=== PATIENT | female | born 1945 | race Caucasian/White ===

== ENCOUNTER 2019-03-13 11:25 | Emergency (ER) | payer MEDICARE, BC, OTHER ==
--- OUTSIDE RECORDS SUMMARY | 2019-03-13 11:53 | XMS REPORT | Continuity of Care Document ---
:1945 External Reference #:[id number] Author Name Sharon Tijerina MD Address [address] [place] [address] Care Team Providers Name Role Phone Lyubov Oliveros NP Care Team Information Ensemble Member Unavailable Lyubov Oliveros NP Primary Care Physician Unavailable Payers Date Identification Numbers Payment Provider Subscriber Policy Number: [id number] Medicare Maddie Ha PayID: [id number] [address] [place] [address] Effective: 2014 Policy Number: [id number] [facility] Aries Ha Group Number: [id number] [address] [address] Group Name: [place] [address] PayID: [id number] Policy Number: [id number] [facility] Aries Mariana Leland PayID: [id number] [address] [place] [address] Effective: 2012 Policy Number: [id number] Medicare Maddie Ha Expires: 2018 Group Name: Medicare [address] PayID: [id number] [place] [address] Advance Directives Type Date Description Status Comment Other Directive 07/19/2008 Health Care Proxy Current and Verified Problems Active Problems Provider Date Localized, 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 Osteoporosis Carina Ramirez, RPAC Onset: 01/20/2015 Note: Reclast since 2014 Hyperlipidemia Carina Ramirez, RPAC Onset: 01/20/2015 [facility] 01/[facility]2015 Note: following tx for hyperthyroidism @ ~47 Anxiety Carina Ramirez [facility] Onset: 01/20/2015 Expressive language disorder Carina Ramirez [facility] Onset: 01/20/2015 Note: stuttering Deformity of toe Carina Ramirez [facility] Onset: 01/20/2015 Note: multiple toe involvement Degenerative joint disease involving Carina Ramirez [facility] Onset: 2014 multiple joints Anxiety state Carina Ramirez [facility] Onset: 09/15/2011 Mixed hyperlipidemia Onset: 09/02/2016 Constipation - functional Harshal Moreno MD Onset: 12/02/2016 [facility]set: 11/29/2017 Amnesia Carina Ramirez [facility] Onset: 11/29/2017 Note: silent 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 Retired Hand Dominance Right-handed Tobacco Use Start: Unknown Never Smoked Cigarettes ETOH Use Drinks 1 Alcoholic Beverage Per Day Tobacco Use Start: Unknown End: Patient is a former smoker Recreational Drug Use Denies Drug Use Smoking Status Reviewed: 03/02/19 Patient is a former smoker Allergies, Adverse Reactions, Alerts Active Allergies Reaction Severity Comments Date Fosamax cold/congestion 10/17/2014 Inactive Allergies NKDA 11/05/2008 Medications Active Medications SIG Qnty Indications Ordering Provider Date Desloratadine 1 tab by mouth 30tabs J30.9 Leon Mcgee, 09/13/2018 5mg every day for M.D. Tablets cough and congestion( Per Pt prn) Eliquis 1 tab by mouth 60tabs Clune, 07/29/2018 5mg Tablets twice a day MIGNON Mcarthur Prolia SQ injection q 6 Ann 06/27/2018 60mg/ml months, starting Endocrinology Solution 07/2018 [facility] Linzess 1 by mouth every 90caps K59.09 Harshal Moreno MD 09/02/2016 290mcg day prn Capsules Calcium 500 +D one tab by mouth Socorro Darby, 01/18/2015 once daily M.D. [id number] Tablets Zafirlukast take one tablet 60tabs Clune, 04/02/2014 20mg by mouth twice a MIGNON Mcarthur Tablets day Multi 1 po qd 100tabs Socorro Darby, 08/31/2012 Vitamin/Minerals MD Full Spectrum Tablets Celecoxib take one capsule 90caps Kang Moss MD 200mg by mouth every Capsules day with food as needed pain Levothyroxine Sodium Take 1 Tablet By Unknown Mouth On M, 75mcg Tablets T,W,TH,F Levothyroxine Sodium Take One Tablet Unknown By Mouth Every 50mcg Tablets Wednesday & Wednesday Paroxetine HCL take one tablet 90tabs Maria Luz Oliver, 20mg by mouth every MS, RECREATION CLERK-C, CNM Tablets day History Medications Hydrocodone-Acetaminophen 1 by mouth 30tabs Sharon Tijerina, 05/18/2018 - 5-325mg every 4 hours 06/01/2018 Tablets as needed for pain Metaxalone 1-2 tabs by 30tabs Sharon Tijerina, 05/10/2018 - 400mg Tablets mouth three MD 06/01/2018 times a day as needed for muscle spasms Aspirin Childrens 1 tab by mouth Perla Coley, 12/26/2017 - 81mg Chewtabs every day 07/29/2018 Azithromycin 2 tabs by 11tabs J06. Leon Mcgee, 06/22/2017 - 250mg Tablets mouth today 9 M.D. 09/03/2017 then one tab by mouth daily Golytely drink half the 4000ml Harshal Moreno MD 09/10/2016 - 236gm Solution Rec evening before 10/15/2016 and half the morning of the procedure (1 cup every 10') Ranitidine 150 Maximum 1 by mouth 30tabs R07. Harshal Moreno MD 09/02/2016 - Strength every day 9 Unknown 150mg Tablets Omeprazole take one 30caps Z79. Vandanapo[place]andaca, 08/19/2016 - 20mg Capsules DR capsule by 1 M.D. Unknown mouth every morning Augmentin take one 14tabs J01. Wanda Vaughanca, 08/19/2016 - 875-125mg Tablets tablet by 90 M.D. Unknown mouth every 12 hours Guaifenesin ER take two 30tabs J01. Pompo Jane, 08/19/2016 - 600mg Tablets ER 12HR tablets by 90 M.D. Unknown mouth every 12 hours as needed for congestion Tessalon take one 30caps J01. Pompo Jane, 08/19/2016 - 200mg Capsules tablet by 90 M.D. Unknown mouth every 8 hours as needed for cough Senna-Docusate Sodium take one 30tabs K59. Vandanapo Jane, 08/19/2016 - 8.6-50mg Tablets tablet by 00 M.D. Unknown mouth every 12 hours stop taking medication if you develop diarrhea Flonase Allergy Relief spray 2 sprays 1units J30. Alexus Jane, 2015 - 50mcg/Act per nostril 89 M.D. 10/14/2017 Suspension once a day as needed for allergies Cefprozil 1 tab by mouth 20tabs J01. Jama Anthony, 04/02/2016 - 500mg Tablets twice a day 90 DO 07/31/2016 Xyzal 5mg 1 tab by mouth 30tabs J30. Jama Anthony, 04/02/2016 - Tablets every day as 9 DO 08/19/2016 needed allergies Synthroid 1 tab by mouth 30tabs Jama Anthony, 10/07/2015 - 88mcg Tablets on Wednesday and DO 10/17/2015Wednesday Cephalexin 1 tab (or cap) 30tabs J01. Jama Anthony, 09/24/2015 - 500mg Tablets by mouth three 90 DO 10/07/2015 times a day Reclast treatment Unknown 05/28/2015 - 5mg/100ML Solution initiated 10/14/201705/2015 1 q year Reclast once a year Ann 04/27/2015 - 5mg/100ML Solution infusion Endocrinology 07/18/2018 [facility] Desloratadine 1 tab by mouth 30tabs 477. Darby, 02/20/2015 - 5mg Tablets every day as 0 Fabian Quintanilla 10/24/2015 needed congestion Synthroid 1 by mouth 5 Jama Anthony, 02/13/2015 - 75mcg Tablets days per week DO 10/17/2015 [t,w,th,s,s] Lipitor tab po qd 30tabs Misael Mcadams 02/26/2010 - 20mg Tablets Fabian Love, [facility] 02/26/2010 Lipitor 1 po qd 90tabs Misael Mcadams 02/26/2010 - 40mg Tablets Fabian Love, [facility] 10/12/2013 Valtrex 1 tab po bid Misael Mcadams 11/13/2008 - 500mg Tablets Fabian Love, [facility] 10/12/2013 Synthroid 1 tab po q day 30tabs Misael Mcadams 11/13/2008 - 88mcg Tablets Fabian Love, [facility] 02/20/2015 Celebrex 1 cap by mouth 90caps Jama Anthony, 11/13/2008 - 200mg Capsules every day with DO 08/19/2016 food Paroxetine HCL ER 1 tab po qd Misael Mcadams 11/13/2008 - 25mg Tablets ER 24HR Fabian Love, [facility] 10/17/2014 Forteo injection Unknown - 600mcg/2.4ML Solution every day 04/19/2015 Synthroid Unknown - 75mcg Tablets 10/17/2014 Montelukast Sodium Unknown - 10mg Tablets 10/17/2014 Levothyroxine Sodium 1 by mouth Unknown - 88mcg Tablets every day 02/20/2015 Levothyroxine Sodium 1 by mouth 45tabs Unknown - 75mcg Tablets every other 02/20/2015 day/ alternates with 88mcg Synthroid 1 by mouth on Unknown - 50mcg Tablets even days Unknown Miralax 1 tablespoon Unknown - [id number] Powder mixed in Am Unknown liquid q day Levothyroxine Sodium 1 tab by mouth E03. Ann - 75mcg Tablets M-F 9 Endocrinology 10/14/2017 Associates Levothyroxine Sodium 1 by mouth on Ann - 50mcg Tablets S + S Endocrinology 10/14/2017 [facility] Fiber Select Gummies fiber advance Jama Anthony, - Chewtabs gummies 2 by DO Unknown mouth daily Medications Administered in Office Medication SIG Qnty Indications Ordering Provider Date Methylprednisolone acetate Lesa Plunkett, 10/17/2014 (Depomedrol) 80mg injection RPAC Injection Immunizations CPT Code Status Date Vaccine Reaction Lot # 49871 Given 07/02/2017 Influenza Virus Vaccine received at Quadrivalent Iiv4 [facility]/[place] [address] Given 10/24/2015 Pneumococcal Conjugate [id number] Vaccine 13 Valent For Intramuscular Use 04899 Given 08/01/2013 Pneumovax Injection 69699 Given 08/01/2013 flu vaccination 45629 Given 05/16/2013 Tdap injection 48463 Given 07/06/2012 flu vaccination 70212 Given 06/29/2011 flu vaccination 23411 Given 09/17/2010 flu vaccination 37472 Given 07/26/2009 flu vaccination 03641 Given 08/28/2008 flu vaccination 66520 Given 08/15/2007 flu vaccination 32960 Given 08/11/2006 flu vaccination 89098 Given 09/10/2005 flu vaccination 14400 Given 08/06/2005 Pneumovax Injection 11501 Given 08/07/2003 flu vaccination Vital Signs Date Vital Result Comment 03/02/2019 10:24am BP Systolic Sitting Left Arm 122 mmHg BP Diastolic Sitting Left Arm 79 mmHg Body Temperature 98.4 F Heart Rate 67 /min Weight 102.00 lb O2 % BldC Oximetry 95 % 02/28/2019 2:13pm BP Systolic 118 mmHg BP Diastolic 60 mmHg Heart Rate 62 /min Respiratory Rate 15 /min Height 56 inches 4'8" Weight 104.00 lb BMI (Body Mass Index) 23.3 kg/m2 BSA (Body Surface Area) 1.34 m2 [place] body weight in kilograms 45 kg O2 % BldC Oximetry 98 % 12/01/2018 8:56am BP Systolic Sitting Left Arm 118 mmHg BP Diastolic Sitting Left Arm 72 mmHg Heart Rate 72 /min Respiratory Rate 18 /min Height 56 inches 4'8" Weight 103.00 lb BMI (Body Mass Index) 23.1 kg/m2 BSA (Body Surface Area) 1.34 m2 [place] body weight in kilograms 45 kg Pain Level 5 upper back/shoulders 11/03/2018 1:17pm BP Systolic Sitting Left Arm 110 mmHg BP Diastolic Sitting Left Arm 62 mmHg Heart Rate 62 /min Respiratory Rate 16 /min Height 56 inches 4'8" Weight 103.50 lb BMI (Body Mass Index) 23.2 kg/m2 BSA (Body Surface Area) 1.34 m2 [place] body weight in kilograms 45 kg O2 % BldC Oximetry 98 % 09/13/2018 10:30am BP Systolic Sitting Right Arm 120 mmHg BP Diastolic Sitting Right Arm 70 mmHg Body Temperature 98.5 F Heart Rate 60 /min reg Respiratory Rate 24 /min Height 56 inches 4'8" Weight 102.00 lb BMI (Body Mass Index) 22.9 kg/m2 BSA (Body Surface Area) 1.33 m2 [place] body weight in kilograms 45 kg O2 % BldC Oximetry 98 % ra 09/01/2018 10:19am BP Systolic 120 mmHg BP Diastolic 72 mmHg Body Temperature 98.1 F Heart Rate 62 /min Height 56 inches 4'8" Weight 103.00 lb BMI (Body Mass Index) 23.1 kg/m2 BSA (Body Surface Area) 1.34 m2 [place] body weight in kilograms 45 kg O2 % BldC Oximetry 94 % Pain Level 0 09/01/2018 10:16am Height 56 inches 4'8" [place] body weight in kilograms 45 kg 07/18/2018 1:12pm BP Systolic 127 mmHg BP Diastolic 81 mmHg Body Temperature 98.4 F Heart Rate 66 /min Respiratory Rate 18 /min Height 56 inches 4'8" Weight 103.38 lb BMI (Body Mass Index) 23.2 kg/m2 BSA (Body Surface Area) 1.34 m2 [place] body weight in kilograms 45 kg O2 % BldC Oximetry 99 % 06/01/2018 10:53am BP Systolic 141 mmHg BP Diastolic 83 mmHg Body Temperature 97.9 F Heart Rate 56 /min Respiratory Rate 15 /min Height 56 inches 4'8" Weight 101.00 lb BMI (Body Mass Index) 22.6 kg/m2 BSA (Body Surface Area) 1.33 m2 [place] body weight in kilograms 45 kg O2 % BldC Oximetry 97 % room air Pain Level 3 05/18/2018 1:27pm BP Systolic 120 mmHg BP Diastolic 62 mmHg Body Temperature 97.1 F Heart Rate 62 /min Height 55.75 inches 4'7.75" measured Weight 103.00 lb BMI (Body Mass Index) 23.3 kg/m2 BSA (Body Surface Area) 1.33 m2 [place] body weight in kilograms 45 kg O2 % BldC Oximetry 97 % Pain Level 5 05/10/2018 10:03am BP Systolic Sitting Left Arm 131 mmHg BP Diastolic Sitting Left Arm 76 mmHg Body Temperature 97.4 F Heart Rate 65 /min Respiratory Rate 17 /min Height 55.75 inches 4'7.75" measured Weight 103.00 lb BMI (Body Mass Index) 23.3 kg/m2 BSA (Body Surface Area) 1.33 m2 [place] body weight in kilograms 45 kg O2 % BldC Oximetry 99 % 11/29/2017 8:50am BP Systolic Sitting Right Arm 130 mmHg BP Diastolic Sitting Right Arm 74 mmHg Heart Rate 62 /min Respiratory Rate 12 /min Height 55.75 inches measured Weight 101.00 lb BMI (Body Mass Index) 22.8 kg/m2 BSA (Body Surface Area) 1.32 m2 [place] body weight in kilograms 45 kg 10/14/2017 1:09pm BP Systolic Sitting Left Arm 113 mmHg BP Diastolic Sitting Left Arm 78 mmHg Heart Rate 56 /min Height 56 inches 4'8" Weight 103.00 lb BMI (Body Mass Index) 23.1 kg/m2 BSA (Body Surface Area) 1.34 m2 [place] body weight in kilograms 45 kg 06/22/2017 12:44pm BP Systolic 127 mmHg BP Diastolic 72 mmHg Body Temperature 97.7 F Heart Rate 67 /min Respiratory Rate 14 /min Height 56 inches 4'8" Weight 101.00 lb BMI (Body Mass Index) 22.6 kg/m2 BSA (Body Surface Area) 1.33 m2 [place] body weight in kilograms 45 kg O2 % BldC Oximetry 96 % 04/14/2017 9:36am BP Systolic Sitting Right Arm 104 mmHg BP Diastolic Sitting Right Arm 62 mmHg Body Temperature 99.0 F Heart Rate 68 /min Respiratory Rate 18 /min Height 56 inches 4'8" Weight 101.00 lb BMI (Body Mass Index) 22.6 kg/m2 BSA (Body Surface Area) 1.33 m2 [place] body weight in kilograms 45 kg O2 % BldC Oximetry 98 % ra 12/02/2016 10:55am BP Systolic Sitting Left Arm 120 mmHg BP Diastolic Sitting Left Arm 62 mmHg Heart Rate 69 /min Respiratory Rate 16 /min Height 56 inches 4'8" Weight 103.00 lb BMI (Body Mass Index) 23.1 kg/m2 BSA (Body Surface Area) 1.34 m2 11/03/2016 1:07pm BP Systolic Sitting Right Arm 138 mmHg BP Diastolic Sitting Right Arm 72 mmHg Height 56 inches 4'8" Weight 102.38 lb BMI (Body Mass Index) 22.9 kg/m2 BSA (Body Surface Area) 1.34 m2 10/15/2016 1:17pm BP Systolic Sitting Left Arm 119 mmHg BP Diastolic Sitting Left Arm 76 mmHg Heart Rate 64 /min Height 56 inches 4'8" Weight 102.00 lb BMI (Body Mass Index) 22.9 kg/m2 BSA (Body Surface Area) 1.33 m2 [place] body weight in kilograms 45 kg 09/10/2016 9:15am BP Systolic Sitting Left Arm 132 mmHg BP Diastolic Sitting Left Arm 82 mmHg Heart Rate 54 /min Respiratory Rate 16 /min Height 56.0 inches 4'8" Weight 102.00 lb BMI (Body Mass Index) 22.9 kg/m2 BSA (Body Surface Area) 1.33 m2 09/02/2016 10:12am BP Systolic Sitting Left Arm 130 mmHg BP Diastolic Sitting Left Arm 80 mmHg Heart Rate 70 /min Respiratory Rate 16 /min Height 56.0 inches 4'8" Weight 102.00 lb BMI (Body Mass Index) 22.9 kg/m2 BSA (Body Surface Area) 1.33 m2 08/19/2016 1:37pm BP Systolic 110 mmHg BP Diastolic 66 mmHg Body Temperature 98.0 F Heart Rate 59 /min Respiratory Rate 20 /min Height 56.0 inches 4'8" Weight 102.00 lb BMI (Body Mass Index) 22.9 kg/m2 BSA (Body Surface Area) 1.33 m2 O2 % BldC Oximetry 97 % 04/02/2016 2:44pm BP Systolic 128 mmHg BP Diastolic 72 mmHg Body Temperature 97.4 F Heart Rate 58 /min Respiratory Rate 12 /min Height 56.0 inches 4'8" Weight 99.38 lb BMI (Body Mass Index) 22.3 kg/m2 BSA (Body Surface Area) 1.32 m2 O2 % BldC Oximetry 95 % 01/16/2016 12:49pm BP Systolic 120 mmHg BP Diastolic 78 mmHg Body Temperature 98.9 F Heart Rate 64 /min Respiratory Rate 14 /min Height 56.0 inches 4'8" Weight 102.00 lb BMI (Body Mass Index) 22.9 kg/m2 BSA (Body Surface Area) 1.33 m2 O2 % BldC Oximetry 98 % 10/24/2015 8:56am BP Systolic Sitting Left Arm 120 mmHg BP Diastolic Sitting Left Arm 66 mmHg Heart Rate 58 /min Height 56.0 inches 4'8" Weight 102.00 lb BMI (Body Mass Index) 22.9 kg/m2 BSA (Body Surface Area) 1.33 m2 O2 % BldC Oximetry 97 % 10/17/2015 9:08am BP Systolic 110 mmHg BP Diastolic 60 mmHg Height 56.0 inches 4'8" Weight 103.00 lb BMI (Body Mass Index) 23.1 kg/m2 BSA (Body Surface Area) 1.34 m2 10/14/2015 9:51am BP Systolic Sitting Left Arm 106 mmHg BP Diastolic Sitting Left Arm 66 mmHg Height 59.5 inches 4'11.50" Weight 102.19 lb BMI (Body Mass Index) 20.3 kg/m2 BSA (Body Surface Area) 1.39 m2 09/24/2015 9:38am BP Systolic Sitting Left Arm 112 mmHg BP Diastolic Sitting Left Arm 72 mmHg Body Temperature 97.6 F Heart Rate 112 /min Height 59.5 inches 4'11.50" Weight 100.50 lb BMI (Body Mass Index) 20.0 kg/m2 BSA (Body Surface Area) 1.38 m2 O2 % BldC Oximetry 94 % 02/20/2015 10:02am Body Temperature 98.3 F 02/20/2015 9:58am BP Systolic Sitting Left Arm 108 mmHg BP Diastolic Sitting Left Arm 66 mmHg Height 54 inches 4'6" Weight 100.00 lb BMI (Body Mass Index) 24.1 kg/m2 BSA (Body Surface Area) 1.29 m2 10/22/2014 10:11am BP Systolic 102 mmHg Height 54 inches 4'6" Weight 103.00 lb 05/18/2014 10:27am BP Systolic 114 mmHg BP Diastolic 70 mmHg Body Temperature 97.3 F Weight 100.00 lb 04/02/2014 10:16am BP Systolic 90 mmHg BP Diastolic 62 mmHg Body Temperature 98.9 F Heart Rate 64 /min Height 54 inches 4'6" Weight 99.00 lb 10/19/2013 1:13pm BP Systolic 110 mmHg BP Diastolic 70 mmHg Height 54 inches 4'6" Weight 102.00 lb 10/10/2013 1:28pm BP Systolic Sitting Right Arm 130 mmHg BP Diastolic Sitting Right Arm 70 mmHg Height 54 inches 4'6" Weight 101.00 lb BMI (Body Mass Index) 24.3 kg/m2 BSA (Body Surface Area) 1.29 m2 06/12/2013 1:44pm BP Systolic 110 mmHg BP Diastolic 72 mmHg Body Temperature 97.7 F Height 54 inches 4'6" Weight 102.00 lb 06/05/2013 10:46am BP Systolic 122 mmHg BP Diastolic 64 mmHg Body Temperature 97.7 F Height 54 inches 4'6" Weight 103.00 lb 10/25/2012 11:06am Heart Rate 64 /min Height 54 inches 4'6" Weight 104.00 lb 130/88 10/06/2012 10:48am BP Systolic 118 mmHg BP Diastolic 70 mmHg Height 54 inches 4'6" Weight 104.00 lb 09/06/2012 1:19pm Height 55.5 inches 4'7.50" Weight 102.00 lb 08/31/2012 1:14pm BP Systolic 106 mmHg BP Diastolic 60 mmHg Weight 103.00 lb 08/16/2012 11:03am Height 54 inches 4'6" Weight 101.00 lb 02/10/2012 11:33am Height 56 inches 4'8" Weight 106.00 lb 02/10/2012 11:35am Height 54 inches 4'6" Weight 106.00 lb 01/27/2012 10:06am BP Systolic 118 mmHg BP Diastolic 68 mmHg Body Temperature 98.0 F Weight 104.00 lb 12/24/2011 11:40am BP Systolic 116 mmHg BP Diastolic 70 mmHg Body Temperature 98.6 F Height 56 inches 4'8" Weight 104.00 lb 12/14/2011 11:10am BP Systolic 116 mmHg BP Diastolic 62 mmHg Body Temperature 98.1 F Height 56 inches 4'8" Weight 107.00 lb 12/10/2011 1:30pm BP Systolic 120 mmHg BP Diastolic 70 mmHg Body Temperature 98.8 F Height 56 inches 4'8" Weight 112.00 lb 10/05/2011 1:27pm BP Systolic 142 mmHg BP Diastolic 78 mmHg Heart Rate 70 /min Respiratory Rate 16 /min Height 56 inches 4'8" Weight 112.00 lb 08/12/2011 11:19am Height 56 inches 4'8" Weight 113.00 lb 07/06/2011 3:24pm BP Systolic 110 mmHg BP Diastolic 70 mmHg Body Temperature 98.6 F Heart Rate 68 /min Respiratory Rate 16 /min Height 56 inches 4'8" Weight 113.00 lb 11/17/2007 8:51am Height 58 inches 4'10" Weight 142.00 lb 04/07/2007 9:56am Height 58 inches 4'10" Weight 141.00 lb 10/14/2006 10:05am Height 56 inches 4'8" Weight 140.00 lb 02/25/2006 9:43am Height 56 inches 4'8" Weight 143.00 lb 09/10/2005 10:12am Height 56 inches 4'8" Weight 141.00 lb 03/11/2005 11:17am Height 56 inches 4'8" Weight 141.00 lb Results Test Date Facility Test Result H/L Range Note LDL Cholesterol 12/01/2018 [facility] Cholesterol 210 mg/dL High <200 1, 2 Profile [address] [place], [place] [id number] [phone] Triglycerides 95 mg/dL <150 3 HDL Cholesterol 82 mg/dL >40 4 LDL-Cholesterol 109 mg/dL < 100 5 Comprehensive Metabolic 12/01/2018 [facility] Glucose 91 mg/dL N 74-106 Panel [address] [place], [place] [id number] [phone] BUN 18 mg/dL N 7-18 Creatinine 0.9 mg/dL N 0.6-1.3 Glom Filtration Rate, Estimate >60 mL/min >60 If >60 mL/min >60 6 BUN/Creat 20.0 ratio Sodium 139 mmol/L N 136-145 Potassium 4.2 mmol/L N 3.5-5.1 Chloride 106 mmol/L N 98-107 Carbon Dioxide 28 mmol/L N 21-32 Anion Gap 5 mEq/L Low 8-16 Calcium 8.9 mg/dL N 8.5-10.1 Total Protein 7.4 g/dL N 6.4-8.2 Albumin 3.9 g/dL N 3.4-5.0 Globulin 3.5 g/dL N 1.9-4.3 Alb/Glob 1.1 ratio Bilirubin,Total 0.4 mg/dL N 0.2-1.0 Sgot/Ast 19 U/L N 15-37 SGPT/Alt 21 U/L N 12-78 Alkaline Phosphatase 49 U/L N 45-117 Urine Dipstick 12/01/2018 [facility] Ua Leuko - Negative Ua Nitrite - Negative Ua Urobilinogen .2 0.2 - 1.0 E.U./dL Ua Protein - Negative Ua PH 7.5 6.5-7.5 Ua Blood - Negative Ua Specific [place] 1.005 Low 1.010-1.030 Ua Ketones - Negative Ua Bilirubin - Negative Ua Glucose - Negative LDL Cholesterol 01/04/2018 [facility] Cholesterol 197 mg/dL <200 7, 8 Profile [address] [place], [place] [id number] [phone] Triglycerides 95 mg/dL <150 9 HDL Cholesterol 84 mg/dL >40 10 LDL-Cholesterol 94 mg/dL < 100 11 Laboratory test 12/20/2017 [facility] Thyroid Stim 0.52 uIU/mL N 0.30-4.20 [address] Hormone [place], [place] [id number] [phone] Treponema Antibody [place] Negative Negative 13 Vitamin B1 (Thiamine),WB 156.3 nmol/L 66.5-200.0 14 CBS W/Automated 12/01/2017 [facility] White Blood 5.5 K/uL N 3.1-10.7 [address] Count [place], [place] [id number] [phone] Red Blood Count 4.31 M/uL N 3.90-5.40 Hemoglobin 13.8 gm/dL N 11.6-15.8 Hematocrit 41.1 % N 36.0-46.1 Mean Cell Volume 95.4 fl N 80.9-99.0 Mean Corpuscular HGB 32.0 pg N 25.9-32.7 Mean Corpuscular HGB Conc 33.6 g/dL N 30.8-34.3 Platelet Count 205 K/uL N 155-360 Red Cell Distri Width SD 46.9 fl N 3-47 Red Cell Distri Width %CV 13.8 % N 11.7-14.4 Mean Platelet Volume 12.1 fL N 8.9-12.4 Neut% 58.2 % N 40.4-72.8 Lymph % 31.0 % N 20.0-42.0 [place] % 7.9 % N 4.3-13.2 Eo% 2.2 % N 0.0-6.6 Bas% 0.7 % N 0.0-1.1 Neut# 3.18 K/uL N 1.8-7.0 Lymph # 1.69 K/uL N 1.0-4.0 [place] # 0.43 K/uL N 0.3-0.9 Eos # 0.12 K/uL N 0.0-0.5 Baso # 0.04 K/uL N 0.0-0.1 Laboratory test 12/01/2017 [facility] Vitamin 45.7 30.0-100.0 [address] D,25-Hydroxy ng/[place] [address] [phone] Vitamin B12 And 12/01/2017 [facility] Vitamin B12 948 pg/mL N 193-986 Folate [address] [place] [address] [phone] Folic Acid > 20.0 ng/mL High 3.1-17.5 Comprehensive Metabolic 12/01/2017 [facility] Glucose 90 mg/dL N 74-106 Panel [address] [place] [address] [phone] BUN 23 mg/dL High 7-18 Creatinine 0.8 mg/dL N 0.6-1.3 Glom Filtration Rate, Estimate >60 mL/min >60 If >60 mL/min >60 17 BUN/Creat 28.7 ratio Sodium 141 mmol/L N 136-145 Potassium 4.5 mmol/L N 3.5-5.1 Chloride 106 mmol/L N 98-107 Carbon Dioxide 29 mmol/L N 21-32 Anion Gap 6 mEq/L Low 8-16 Calcium 9.1 mg/dL N 8.5-10.1 Total Protein 7.1 g/dL N 6.4-8.2 Albumin 4.0 g/dL N 3.4-5.0 Globulin 3.1 g/dL N 1.9-4.3 Alb/Glob 1.3 ratio Bilirubin,Total 0.5 mg/dL N 0.2-1.0 Sgot/Ast 19 U/L N 15-37 SGPT/Alt 17 U/L N 12-78 Alkaline Phosphatase 51 U/L N 45-117 Laboratory test 08/19/2016 [facility] Thyroid Stim 3.87 N 0.30-4.20 [address] Hormone uIU/[place] [address] [phone] Laboratory test 11/26/2015 [facility] TSH Reflex 5.80 High 0.36-3.74 [address] FT4 and/or uIU/[place] [address] FT3 [phone] Free T3 2.05 pg/mL Low 2.18-3.98 Free T4 1.00 ng/dL 0.76-1.46 Comprehensive Metabolic 10/24/2015 [facility] Glucose 92 mg/dL 74-[address] [place] [address] [phone] BUN 21 mg/dL High 7-18 Creatinine 0.8 mg/dL 0.6-1.3 Glom Filtration Rate, Estimate >60 mL/min >60 If >60 mL/min >60 20 BUN/Creat 26.2 ratio Sodium 141 mmol/L 136-145 Potassium 4.1 mmol/L 3.5-5.1 Chloride 105 mmol/L 98-107 Carbon Dioxide 27 mmol/L 21-32 Anion Gap 9 mEq/L 8-16 Calcium 8.5 mg/dL 8.5-10.1 Total Protein 7.4 g/dL 6.4-8.2 Albumin 4.0 g/dL 3.4-5.0 Globulin 3.4 g/dL 1.9-4.3 Alb/Glob 1.2 ratio Bilirubin,Total 0.5 mg/dL 0.2-1.0 Sgot/Ast 25 U/L 15-37 SGPT/Alt 25 U/L 12-78 Alkaline Phosphatase 62 U/L 45-117 LDL Cholesterol 10/24/2015 [facility] Cholesterol 204 mg/dL High <200 [address] [place] [address] [phone] Triglycerides 142 mg/dL <150 22 HDL Cholesterol 75 mg/dL >40 23 LDL-Cholesterol 101 mg/dL < 100 24 Laboratory test 10/24/2015 [facility] Vitamin 43.1 30.0-100.0 [address] D,25-Hydroxy ng/[place] [address] [phone] Laboratory test 09/24/2015 [facility] Thyroid Stim 0.46 0.36-3.[address] Hormone uIU/[place] [address] [phone] Free T4 1.37 ng/dL 0.76-1.46 CBS W/Automated Diff 09/24/2015 [facility] White Blood 7.2 K/uL 3.1-10.[address] [place] [address] [phone] Red Blood Count 4.42 M/uL 3.90-5.40 Hemoglobin 14.1 gm/dL 11.6-15.8 Hematocrit 42.9 % 36.0-46.1 Mean Cell Volume 97.1 fl 80.9-99.0 Mean Corpuscular HGB 31.9 pg 25.9-32.7 Mean Corpuscular HGB Conc 32.9 g/dL 30.8-34.3 Platelet Count 214 K/uL 155-360 Red Cell Distri Width SD 47.8 fl High 3-47 Red Cell Distri Width %CV 13.9 % 11.7-14.4 Mean Platelet Volume 11.1 fL 8.9-12.4 Neut% 71.9 % 40.4-72.8 Lymph % 17.8 % 17.0-46.1 [place] % 8.4 % 4.3-13.2 Eo% 1.3 % 0.0-6.6 Bas% 0.6 % 0.0-1.1 Neut# 5.15 K/uL 1.0-7.0 Lymph # 1.27 K/uL Low 1.8-7.0 [place] # 0.60 K/uL 0.3-0.9 Eos # 0.09 K/uL 0.0-0.5 Baso # 0.04 K/uL 0.0-0.1 Hepatitis C 02/20/2015 [facility] Hepatitis C Nonreactive Antibody [address] [place] [address] [phone] Signal/Cutoff ratio < 0.02 <0.80 26 Laboratory test 10/22/2014 N2N/CCD Import Cytology Pap See Note 27 finding Laboratory test 12/26/2013 N2N/CCD Import Thyroid Stim 3.38 0.49-4.67 finding Hormone uIU/mL Laboratory test 06/21/2013 N2N/CCD Import Creatine Kinase 63 U/L 0-200 finding Lipid Profile 06/21/2013 N2N/CCD Import Cholesterol 220 mg/dL High Less than (Trig/Chol/HDL) 200 Cholesterol/HDL Ratio 2.5 Average 1-4.44 HDL Cholesterol 87 mg/dL High 40-60 28 LDL Cholesterol 111.4 High Less Than 100 29 Triglycerides 108 mg/dL 40-200 Liver Function Panel 06/21/2013 N2N/CCD Import Albumin 4.1 g/dL 3.2-5.2 Albumin/Globulin Ratio 1.7 1-3 Alkaline Phosphatase 73 U/L 30-110 Alt 13 U/L Low 14-54 Ast 25 U/L 12-42 Direct Bilirubin 0.1 mg/dL 0.1-0.5 Globulin 2.4 g/dL 2-4 Indirect Bilirubin 0.6 mg/dL 0.3-1.0 Total Bilirubin 0.7 mg/dL 0.4-1.5 Total Protein 6.5 g/dL 6.2-8.1 Lipid Profile 01/06/2013 N2N/CCD Import Cholesterol 159 mg/dL Less than (Trig/Chol/HDL) 200 Cholesterol/HDL Ratio 2.1 Average 1-4.44 HDL Cholesterol 75 mg/dL High 40-60 30 LDL Cholesterol 72.8 mg/dL Less Than 100 31 Triglycerides 56 mg/dL 40-200 Laboratory test finding 01/06/2013 N2N/CCD Import Creatine Kinase 163 U/L 0-200 Free T4 1.20 ng/mL 0.61-1.24 TSH (Thyroid Stimulating Horm) 1.73 miu/mL 0.34-5.60 Liver Function Panel 01/06/2013 N2N/Chatterfly Import Albumin 4.0 g/dL 3.2-5.2 Albumin/Globulin Ratio 1.5 1-3 Alkaline Phosphatase 79 U/L 30-110 Alt 20 U/L 14-54 Ast 29 U/L 12-42 Direct Bilirubin 0.1 mg/dL 0.1-0.5 Globulin 2.7 g/dL 2-4 Indirect Bilirubin 0.7 mg/dL 0.3-1.0 Total Bilirubin 0.8 mg/dL 0.4-1.5 Total Protein 6.7 g/dL 6.2-8.1 Vitamin D, 25 01/06/2013 N2N/Chatterfly Import 25-Hydroxy Vitamin D 35 ng/mL 32 Hydroxy Total 25-Hydroxy Vitamin D2 <4.0 ng/mL 25-Hydroxy Vitamin D3 35 ng/mL Laboratory test finding 10/06/2012 Visiprise[facility]/Chatterfly Import Free T4 1.04 ng/mL 0.61-1.24 TSH (Thyroid Stimulating Horm) 1.81 miu/mL 0.34-5.60 Vitamin D, 25 10/06/2012 N2N/Chatterfly Import 25-Hydroxy Vitamin D 36 ng/mL 33 Hydroxy Total 25-Hydroxy Vitamin D2 <4.0 ng/mL 25-Hydroxy Vitamin D3 36 ng/mL Laboratory test finding 09/01/2012 N2N/Chatterfly Import Bas% 0.5 % 0.0-1.1 Baso # 0.03 K/uL 0.0-0.1 Eo% 1.2 % 0.0-6.6 Eos # 0.07 K/uL 0.0-0.5 Free T3 2.78 pg/mL 1.95-4.58 Free T4 1.30 ng/dL 0.71-1.85 Hematocrit 40.9 % 36.0-46.1 Hemoglobin 13.6 gm/dL 11.6-15.8 Lymph # 1.93 K/uL 0.8-3.4 Lymph % 31.8 % 17.0-46.1 Mean Cell Volume 97.1 fl 80.9-99.0 Mean Corpuscular HGB 32.3 pg 25.9-32.7 Mean Corpuscular HGB Conc 33.3 g/dL 30.8-34.3 Mean Platelet Volume 11.4 fL 8.9-12.4 [place] # 0.44 K/uL 0.3-0.9 [place] % 7.2 % 4.3-13.2 Neut# 3.60 K/uL 1.0-7.0 Neut% 59.3 % 40.4-72.8 PTH,Intact 20 pg/mL 15-65 34 Platelet Count 237 K/uL 155-360 Red Blood Count 4.21 M/uL 3.90-5.40 Red Cell Distri Width %CV 13.2 % 11.7-14.4 Red Cell Distri Width SD 46.0 fl 3-47 Thyroid Stim Hormone 0.14 uIU/mL Low 0.49-4.67 35 Vitamin D,1,25 Dihydroxy 78.1 pg/mL High 10.0-75.0 36 White Blood Count 6.1 K/uL 3.1-10.7 Laboratory test finding 10/05/2011 N2N/CCD Import Cytology Pap See Note 37 Liver Function Panel 10/05/2011 N2N/CCD Import Albumin 4.3 GM/DL 3.2- 5.2 Albumin/Globulin Ratio 2.2 1-3 Alkaline Phosphatase 65 U/L 30-110 Alt (SGPT) 17 U/L 14-54 Ast (Sgot) 26 U/L 12-42 Bilirubin Direct 0.1 mg/dL 0.1-0.5 Bilirubin Total 0.8 mg/dL 0.4-1.5 38 Globulin 2.0 GM/DL 2-4 Indirect Bilirubin 0.7 mg/dL 0.3-1.0 39 Total Protein 6.3 GM/DL 6.2-8.1 Lipid Profile 10/05/2011 N2N/CCD Import Cholesterol 148 mg/dL Less Than 40 (Trig/Chol/HDL) 200 Cholesterol/HDL Ratio 2.08 AVERAGE 1-4.44 High Density Lipoprotein 71 mg/dL High 40-60 41 Low Density Lipoprotein 64 mg/dL Less Than 100 42 Triglyceride 65 mg/dL 40-200 CBC Auto Diff 10/05/2011 N2N/CCD Import Abs Basophils 0.1 0-0.2 Abs Eosinophils 0.1 0-0.6 Abs Lymphs 2.4 1.0-4.8 Abs Mononuclear 0.4 0-0.8 Absolute Neutrophil Count 4.0 1.5-7.7 Basophil % 0.8 % 0-2 Eosinophil % 1.4 % 0-6 Gran % 58.2 % 38-83 Hematocrit 40 % 35-47 Hemoglobin 13.4 g/dL 12.0-16.0 Lymph % 34.3 % 25-47 Mean Corpuscular HGB Cone 34 g/dL 32-36 Mean Corpuscular Hemoglob 32 pg High 27-31 Mean Corpuscular Volume 96 um3 79-97 Mean Platelet Volume 10.2 um3 7.4-10.4 Mononuclear % 5.3 % 1-9 Platelet Count 213 CUMM 150-450 Red Cell Count 4.14 CUMM Low 4.2-5.4 Redcell Distribution WDTH 14 % 10.5-15 White Blood Count 6.9 CUMM 4.8-10.8 Laboratory test 10/05/2011 N2N/CCD Import CPK (Creatine 104 U/L 0-170 finding Kinase) TSH 0.26 MIU/ML Low 0.34-5.60 Throat-Beta Strept 07/06/2011 N2N/CCD Import Throat-Beta Strep Posad 43 Culture Laboratory test 06/07/2009 [facility] CK 98 U/L 26-190 finding [address] [place], [place] [id number] [phone] LDL Cholesterol 06/07/2009 [facility] Cholesterol 132 mg/dL 120-200 Profile [address] [place], [place] [id number] [phone] Triglycerides 85 mg/dL 0-210 HDL Cholesterol 58 mg/dL 32-96 LDL-Cholesterol 57 mg/dL Low 62-185 Liver Function Tests 06/07/2009 [facility] Total Protein 7.0 g/dL 6.3-8.0 [address] [place], [place] [id number] [phone] Albumin 4.1 g/dL 3.5-5.0 Bilirubin,Total 0.5 mg/dL 0.2-1.2 Bilirubin,Direct 0.1 mg/dL 0.1-0.4 Bilirubin,Indirect 0.4 mg/dL 0.0-0.9 Sgot/Ast 34 U/L 16-40 SGPT/Alt 39 U/L 30-65 Alkaline Phosphatase 83 U/L 50-136 Globulin 2.9 gm/dL 1.9-4.3 Alb/Glob 1.4 Laboratory test 06/07/2009 [facility] Vitamin 32.7 32.0-100.0 44 finding [address] Marcial,25-Hydroxy ng/[place] [address] [phone] Laboratory test 12/29/2007 N2N/CCD Import Albumin 3.8 g/dL 3.5-5.0 finding Alkaline Phosphatase 73 U/L 50-136 Bilirubin,Direct 0.2 mg/dL 0.1-0.4 Bilirubin,Indirect 0.1 mg/dL 0.0-0.9 Bilirubin,Total 0.3 mg/dL 0.2-1.2 SGPT/Alt 32 U/L 30-65 Sgot/Ast 21 U/L 16-40 Total Protein 6.8 g/dL 6.3-8.0 BUN And Creatinine 12/29/2007 N2N/CCD Import BUN 23 mg/dL 5-23 BUN/Creat 28.7 Creatinine 0.8 mg/dL 0.5-1.4 Laboratory test finding 04/07/2007 N2N/CCD Import Albumin 3.7 g/dL 3.5- 5.0 Alkaline Phosphatase 87 U/L 50-136 Bilirubin,Direct 0.2 mg/dL 0.1-0.4 Bilirubin,Indirect 0.2 mg/dL 0.0-0.9 Bilirubin,Total 0.4 mg/dL 0.2-1.2 SGPT/Alt 32 U/L 30-65 Sgot/Ast 21 U/L 16-40 Total Protein 6.6 g/dL 6.3-8.0 BUN And Creatinine 04/07/2007 N2N/CCD Import BUN 22 mg/dL 5-23 BUN/Creat 27.5 Creatinine 0.8 mg/dL 0.5-1.4 1 Z00.00 2 Reference Guidelines*: Desirable: ........... < 200 mg/dL Borderline High: ..... 200-239 mg/dL High: ................ >=240 mg/dL * The National Cholesterol Education Program (NCEP) 3 Reference Guidelines*: Normal: ............. < 150 mg/dL Borderline High: .... 150-199 mg/dL High: ............... 200-499 mg/dL Very High: .......... > 500 mg/dL * Source: National Cholesterol Education Program (NCEP) 4 Reference Guidelines*: Low HDL: ..... < 40 mg/dL Normal: ..... 40-60 mg/dL Desirable: ... > 60 mg/dL *The National Cholesterol Education Program(NCEP) 5 Reference Guidelines*: Optimal:........... <100 mg/dL Near Optimal....... 100-129 mg/dL Borderline High.... 130-159 mg/dL High............... 160-189 mg/dL Very High.......... >=190 mg/dL * Source: National Cholesterol Education Program (NCEP) 6 Note: Persistent reduction for 3 months or more in an eGFR <60 mL/min/1.73 m2 defines CKD. Patients with eGFR values >/=60 mL/min/1.73 m2 may also have CKD if evidence of persistent proteinuria is present. The original MDRD equation for estimated GFR is not valid for patients less than 18 years of age. Additional information may be found at www.kdoqi.org. 7 I63.9 8 Reference Guidelines*: Desirable: ........... < 200 mg/dL Borderline High: ..... 200-239 mg/dL High: ................ >=240 mg/dL * The National Cholesterol Education Program (NCEP) 9 Reference Guidelines*: Normal: ............. < 150 mg/dL Borderline High: .... 150-199 mg/dL High: ............... 200-499 mg/dL Very High: .......... > 500 mg/dL * Source: National Cholesterol Education Program (NCEP) 10 Reference Guidelines*: Low HDL: ..... < 40 mg/dL Normal: ..... 40-60 mg/dL Desirable: ... > 60 mg/dL *The National Cholesterol Education Program(NCEP) 11 Reference Guidelines*: Optimal:........... <100 mg/dL Near Optimal....... 100-129 mg/dL Borderline High.... 130-159 mg/dL High............... 160-189 mg/dL Very High.......... >=190 mg/dL * Source: National Cholesterol Education Program (NCEP) 12 R41.3 MEMORY LOSS R41.3 R42 E51.9 13 Performed at: [facility] [email or web address] [id number] Garbage Depot Worker: Ankit Figueredo MD, Phone: [phone] 14 This test was developed and its performance characteristics determined by [employer]. It has not been cleared or approved by the Food and Drug Administration. Performed at: [facility] [address] [id number] Garbage Depot Worker: Ankit Figueredo MD, Phone: [phone] 15 R41.3 16 Vitamin D deficiency has been defined by the [place] of [employer] and an Endocrine Society practice guideline as a level of serum 25-OH vitamin D less than 20 ng/mL (1,2). The Endocrine Society went on to further define vitamin D insufficiency as a level between 21 and 29 ng/mL (2). 1. IOM ([place] of [employer]). 2010. Dietary reference intakes for calcium and D. [place]: The National Academies Press. 2. Jethro MF, Juan Francisco NC, Abida MAC, et al. Evaluation, treatment, and prevention of vitamin D deficiency: an Endocrine Society clinical practice guideline. JCEM. 2010; 96(7):1911-30. Performed at: - [facility], [place], [place] [id number] Garbage Depot Worker: Carly Garcia MD, Phone: [phone] 17 Note: Persistent reduction for 3 months or more in an eGFR <60 mL/min/1.73 m2 defines CKD. Patients with eGFR values >/=60 mL/min/1.73 m2 may also have CKD if evidence of persistent proteinuria is present. The original MDRD equation for estimated GFR is not valid for patients less than 18 years of age. Additional information may be found at www.kdoqi.org. 18 E03.9 19 QUERY: Reflex add FT3? Y QUERY: Reflex add FT4? Y 20 Note: Persistent reduction for 3 months or more in an eGFR <60 mL/min/1.73 m2 defines CKD. Patients with eGFR values >/=60 mL/min/1.73 m2 may also have CKD if evidence of persistent proteinuria is present. The original MDRD equation for estimated GFR is not valid for patients less than 18 years of age. Additional information may be found at www.kdoqi.org. 21 Reference Guidelines*: Desirable: ........... < 200 mg/dL Borderline High: ..... 200-239 mg/dL High: ................ >=240 mg/dL * The National Cholesterol Education Program (NCEP) 22 Reference Guidelines*: Normal: ............. < 150 mg/dL Borderline High: .... 150-199 mg/dL High: ............... 200-499 mg/dL Very High: .......... > 500 mg/dL * Source: National Cholesterol Education Program (NCEP) 23 Reference Guidelines*: Low HDL: ..... < 40 mg/dL Normal: ..... 40-60 mg/dL Desirable: ... > 60 mg/dL *The National Cholesterol Education Program(NCEP) 24 Reference Guidelines*: Optimal:........... <100 mg/dL Near Optimal....... 100-129 mg/dL Borderline High.... 130-159 mg/dL High............... 160-189 mg/dL Very High.......... >=190 mg/dL * Source: National Cholesterol Education Program (NCEP) 25 Vitamin D deficiency has been defined by the [place] of [employer] and an Endocrine Society practice guideline as a level of serum 25-OH vitamin D less than 20 ng/mL (1,2). The Endocrine Society went on to further define vitamin D insufficiency as a level between 21 and 29 ng/mL (2). 1. IOM ([place] of [employer]). 2010. Dietary reference intakes for calcium and D. [place]: The National Academies Press. 2. Jethro MF, Juan Francisco MCINTOSH, Abida MAC, et al. Evaluation, treatment, and prevention of vitamin D deficiency: an Endocrine Society clinical practice guideline. JCEM. 2010; 96(7):1911-30. Performed at: RN - [facility] [address] [id number] Garbage Depot Worker: Carly Garcia MD, Phone: [phone] 26 Antibodies to HCV not detected; does not exclude early acute HCV infection. 27 Cytology Laboratory [address] [place] [address], [address] [place] [address] CYTOLOGY REPORT Name: Maddie Ha : 1945 (Age: 68) Sex: F Location: [facility] Med. Rec. # [id number] Date Collected: 10/22/2014 Billing #: [id number] Date Received: 10/22/2014 Requisition # [id number] Physician(s): CARINA PISANO Source of Specimen: ENDOCERVICAL/ECTOCERVICAL THIN PREP Clinical Information: Date of Last Menstrual Period: None Provided Menstrual History: Post menopausal: 1992 Interpretation: NEGATIVE FOR INTRAEPITHELIAL LESION OR MALIGNANCY. Specimen Adequacy: SATISFACTORY FOR EVALUATION. Additional Findings: ENDOCERVICAL/TRANSFORMATION ZONE PRESENT. br Electronic Signature EMMA Hardin (ASCP) Reported: 10/24/2014 [facility] ICD-9 Code(s) V76.2 28 HDL Interpretation: Undesirable: High Risk: Less than 40 mg/dL Desirable: Low Risk: Greater than 60 mg/dL 29 LDL Interpretation: Low Risk Optimal Level: LDL Less than 100 mg/dL Near or Above Optimal: LDL 100-129 mg/dL Borderline High Risk: LDL 130-159 mg/dL High Risk : LDL 160-189 mg/dL Very High Risk: LDL Greater than 189 mg/dL 30 HDL Interpretation: Undesirable: High Risk: Less than 40 MG/DL Desirable: Low Risk: Greater than 60 MG/DL 31 LDL Interpretation: Low Risk Optimal Level: LDL Less than 100 MG/DL Near or Above Optimal: LDL 100-129 MG/DL Borderline High Risk: LDL 130-159 MG/DL High Risk : LDL 160-189 MG/DL Very High Risk: LDL Greater than 189 MG/DL 32 -- REFERENCE VALUE -- 25-HYDROXY D TOTAL (D2+D3) Optimum levels in the normal population are 25-80 Test Performed by: [address] [id number] Milk Bottler: Blas Araiza III, M.D. 33 -- REFERENCE VALUE -- 25-HYDROXY D TOTAL (D2+D3) Optimum levels in the normal population are 25-80 Test Performed by: [address] [address] Milk Bottler: Blas Araiza III, M.D. 34 Performed at: [facility] [id number] Garbage Depot Worker: Carly Garcia MD, Phone: [phone] 35 A low TSH should not be the sole basis for diagnosing primary hyperthyroidism, or primary hypopituitary function. Additional tests are suggested for confirmation. 36 Performed at: [facility] [id number] Garbage Depot Worker: Ankit Figueredo MD, Phone: [phone] 37 Cytology Laboratory [address] [place] [address], [address] [place] [address] CYTOLOGY REPORT Name: Maddie Ha : 1945 (Age: 65) Sex: F Location: [facility] Soc. Sec. #: [id number] Date Collected: 10/05/2011 Billing #: [id number] Date Received: 10/06/2011 Physician(s): CARINA PISANO Source of Specimen: ENDOCERVICAL/ECTOCERVICAL THIN PREP Clinical Information: Date of Last Menstrual Period: None Provided Menstrual History: Post menopausal Specimen Adequacy: SATISFACTORY FOR EVALUATION. ADEQUATE ENDOCERVICAL/TRANSFORMATION ZONE. SCANT CELLULARITY. General Categorization: NEGATIVE FOR INTRAEPITHELIAL LESION OR MALIGNANCY. kfs Electronic Signature EMMA Richards (ASCP) Reported: 10/08/2011 Also seen by:Natalie Finn, CT (ASCP) Cytology Outreach [facility] ICD -9 Code(s) V72.31 38 A metabolite of Naproxen, O-desmethylnaproxen, has been shown to interfere with the Jendrassik-Jessica method for measuring total bilirubin. Samples from patients who have taken Naproxen have shown spurious elevation in total bilirubin levels. 39 Please note updated reference range, effective 04/17/10 40 CHOLESTEROL INTERPRETATION: Desirable: Less than 200 MG/DL Borderline-High Risk: 200-239 MG/DL High-Risk: 240 MG/DL and over 41 HDL INTERPRETATION: Undesirable: High Risk: Less than 40 MG/DL Desirable: Low Risk: Greater than 60 MG/DL 42 LDL INTERPRETATION: Low Risk Optimal Level: LDL Less than 100 MG/DL Near or Above Optimal: LDL 100-129 MG/DL Borderline High Risk: LDL 130-159 MG/DL High Risk : LDL 160-189 MG/DL Very High Risk: LDL Greater than 189 MG/DL 43 POSITIVE FOR PRESUMPTIVE GROUP A BETA HEMOLYTIC STREP BY BACITRACIN DISC 44 Recent studies consider the lower limit of 32.0 ng/mL to be a threshold for optimal health. Crow RAMAN. J Nutr. 2004;135(2):317-22. Procedures Date Code Description Status 12/15/2018 [id number] Mammogram Completed 07/27/2018 69673 Doppler ECHO Color Flow Mapping Completed 07/27/2018 04968 Doppler Echocardiogram Complete Completed 07/27/2018 71721 Transesophageal Echocardiogram Completed 05/10/2018 45050 Radiology, Shoulder: Two Views (Sso) Completed 01/12/2018 09095 Echocardiogram Complete Completed 12/23/2017 [id number] Bone Mineral Density Test Completed 12/09/2017 [id number] Mammogram Completed 10/14/2017 83900 Radiology, Shoulder: Two Views (Sso) Completed 10/14/2017 48437 Radiology, Shoulder: Two Views (Sso) Completed 11/09/2016 [id number] Mammogram Completed 10/15/2016 65424 Radiology, Shoulder: Two Views (Sso) Completed 10/15/2016 04645 Radiology, Shoulder: Two Views (Sso) Completed 09/17/2016 [id number] Colonoscopy Completed 09/10/2016 45675 EKG-Tracing And Report Completed 10/29/2015 [id number] Mammogram Completed 10/17/2015 80415 Radiology, Shoulder: Two Views (Sso) Completed 10/17/2015 56445 Radiology, Shoulder: Two Views (Sso) Completed 10/17/2015 17670 Radiology, Shoulder: Two Views (Sso) Completed 10/17/2015 66829 Radiology, Shoulder: Two Views (Sso) Completed 10/25/2014 06828 Mammography Unilateral Completed 10/17/2014 95404 Radiology, Shoulder: Two Views (Sso) Completed 10/17/2014 84752 Radiology, Shoulder: Two Views (Sso) Completed 10/17/2014 13699 Radiology, Shoulder: Two Views (Sso) Completed 10/17/2014 02621 Radiology, Shoulder: Two Views (Sso) Completed 10/17/2014 45365 Asp./Injection major joint Completed 10/10/2013 75142 Radiology, Shoulder: One View Completed 10/27/2012 64572 Arthroplasty Shoulder Total Completed 10/06/2012 87321 EKG-Tracing And Report Completed 09/06/201217206 Asp./Injection major joint Completed 01/27/2012 28584 Pulse Oximetry Completed 03/25/2011 17432 Echocardiogram Complete Completed 09/24/2010 22394 Echocardiogram Complete Completed 11/26/2009 99468 Remove Impacted Cerumen Completed 04/15/2009 66246 Remove Impacted Cerumen Completed 01/04/2009 52420 Colonoscopy Completed 01/04/2009 68624173 Colonoscopy Completed 10/26/2008 28577 EKG-Tracing And Report Completed 10/02/2008 42799 Stress Test Interpre And Report Only Completed 11/17/200770556 Asp./Injection major joint Completed 04/07/200707604 Asp./Injection major joint Completed 09/10/200417173 Asp./Injection major joint Completed 08/05/2004 08787 EKG-Tracing And Report Completed 12/21/2002 02180 Remove Impacted Cerumen Completed 06/10/1997 07108 EKG Interpretation And Report Only Completed Encounters Type Date Location Provider Dx Diagnosis Office Visit 02/28/2019 Family Pepper Rondon Acute nasopharyngitis 2:30p [place] [common cold] RECREATION CLERK Office Visit 12/01/2018 Family Hugh Rondon.00 Encntr for general 9:00a [address] Marynellibecky, adult medical exam w/o RECREATION CLERK abnormal findings L60.8 Other nail disorders E03.9 Hypothyroidism, unspecified K59.09 Other constipation Z12.31 Encntr screen mammogram for malignant neoplasm of breast Office Visit 11/03/2018 1:30p [place] Buchanan, K59.09 Other constipation Office Visit 09/13/2018 10:15a Primary Care Ashley J30.9 Allergic rhinitis, Office Carina, RPAC unspecified R05 Cough Office Visit 09/01/2018 10:30a Orthopaedic Breezy Z96.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 Office Visit 07/18/2018 1:30p Primary Care Ashley Z48.02 Encounter for Office Carina, RPAC removal of sutures Office Visit 06/01/2018 10:30a [facility]opaedic [facility] Z96.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 Office Visit 05/18/2018 1:45p Orthopaedic Kiarra M25.511 Pain in right Office Lesa S., shoulder RPAC Z96.611 Presence of right artificial shoulder joint Office Visit 05/10/2018 9:45a Orthopaedic Kiarra, Z96.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., right artificial RPAC shoulder joint M25.511 Pain in right shoulder Office Visit 11/29/2017 9:00a Primary Care Ashley Z00.01 Encounter for Office Carina, RPAC general adult medical exam w abnormal findings Z12.31 Encntr screen mammogram for malignant neoplasm of breast E03.9 Hypothyroidism, unspecified 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, unspecified L84 Corns and callosities Z00.01 Encounter for general adult medical exam w abnormal findings M81.8 Other osteoporosis without current pathological fracture R41.3 Other amnesia H61.22 Impacted cerumen, left ear Office Visit 10/14/2017 1:15p Orthopaedic Kiarra Z96.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., right artificial RPAC shoulder joint Z47.1 Aftercare following joint replacement surgery Office Visit 06/22/2017 1:00p Primary Care Ashley J06.9 Acute upper Office Carina, RPAC respiratory infection, unspecified H69.92 Unspecified Eustachian tube disorder, left ear Office Visit 04/14/2017 9:30a Primary Care Ashley J02.9 Acute pharyngitis, Office [facility] unspecified Office Visit 12/02/2016 11:00a BAKARI Moreno MD K59.09 Other constipation Office Visit 11/03/2016 1:00p Primary Care Ashley, E03.9 Hypothyroidism, Office [facility] unspecified M81.0 Age-related osteoporosis w/o current pathological fracture K59.09 Other constipation Office Visit 10/15/2016 Orthopaedic Kiarra, Z96.611 Presence of right 1:15p Office Lesa S., artificial RPAC shoulder joint Office Visit 09/10/2016 Cardiology Office Joan Arely R07.9 Chest pain, 9:00a A., ANP unspecified Office Visit 09/02/2016 BAKARI Moreno MD R07.9 Chest pain, 10:00a unspecified K59.09 Other constipation R19.4 Change in bowel habit Office Visit 08/19/2016 1:45p Primary Care Jane Vaughan, J01.90 Acute sinusitis, Office M.D. unspecified E03.9 Hypothyroidism, unspecified Z79.1 retirement (current) use of non-steroidal non-inflam (Nsaid) M54.5 Low back pain K59.00 Constipation, unspecified J30.89 Other allergic rhinitis Office Visit 04/02/2016 2:15p Primary Care Ashley J01.90 Acute sinusitis, Office [facility] unspecified J30.9 Allergic rhinitis, unspecified Office Visit 01/16/2016 1:00p Primary Care [place], E03.9 Hypothyroidism, Office [facility] unspecified K59.00 Constipation, unspecified L82.1 Other seborrheic keratosis J30.9 Allergic rhinitis, unspecified Office Visit 10/24/2015 9:00a Primary Care [place] Z00.[address] [facility] general adult medical exam w/o abnormal findings Z12.31 Encntr screen mammogram for malignant neoplasm of breast M81.0 Age-related osteoporosis w/o current pathological fracture E03.9 Hypothyroidism, unspecified K59.00 Constipation, unspecified Z23 Encounter for immunization Office Visit 10/17/2015 9:15a [facility], Z96.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., right artificial RPAC shoulder joint M25.512 Pain in left shoulder Office Visit 10/14/2015 9:30a Primary [facility] [place], E03.9 Hypothyroidism, Office [place], [facility] unspecified K59.00 Constipation, unspecified Office Visit 09/24/2015 9:30a [facility] [place], E03.9 Hypothyroidism, Office Car[place], [facility] unspecified J01.90 Acute sinusitis, unspecified Office Visit 02/20/2015 10:00a [facility] [place], 477.0 Rhinitis [facility], [facility] Allergic Due To Pollen 780.8 Generalized Hyperhidrosis Office Visit 10/17/2014 9:15a [facility], V43.61 Shoulder Office Lesa S., Replacement By [facility] Other Means 726.10 Bursae & Tendon Disorders Shoulder Region Unspec 719.41 Pain Joint Shoulder Region 715.11 Osteoarthrosis Localized Prim Shoulder Region Office Visit 10/10/2013 1:15p [facility] V43.61 Shoulder Office Lesa S., Replacement By [facility] Other Means 715.11 Osteoarthrosis Localized Prim Shoulder Region Office Visit 07/04/2009 Surgical Office Paramjit, V76.51 Special 1:00p Brian Gonzales, Screening For M.D. Malignant Neoplasms Colon Office Visit 11/12/2008 Cardiology Misael Mcadams 786.51 Pain Precordial 1:30p Office Fabian Love, FACC 272.0 Hypercholesterolemia Pure Office Visit 10/26/2008 1:00p Cardiology Office Misael Mcadams 786.50 Pain Chest M., M.D., FACC Unspec 794.30 Cardiovascular Function Study Unspec Abnormal 272.4 Hyperlipidemia Other Unspec Office Visit 02/11/2007 10:15a Operating Room Ceasar Myers, 473.0 Sinusitis Chronic M.D. Maxillary Plan of Treatment Future Appointment(s):03/05/2020 1:00 pm - Sharon Tijerina MD at [facility]8306/08/2019 10:00 am - Lyubov lOiveros FNP at [facility]
--- OUTSIDE RECORDS SUMMARY | 2019-03-13 11:54 | XMS REPORT | Continuity of Care Document ---
:1945 External Reference #:[id number] Author Name Lyubov Oliveros FNP Address [address] [facility] [place] [address] Care Team Providers Name Role Phone Lyubov Oliveros, LORI Care Team Information Software Quality Manager Unavailable Lyubov Oliveros, AUTO DRIVER Primary Care Physician Unavailable Payers Date Identification Numbers Payment Provider Subscriber Policy Number: [id number] Medicare Maddie Ha PayID: [id number] [address] [place] [address] Effective: 2014 Policy Number: [id number] Luisus Aries Ha Group Number: [id number] [address] [address] Group Name: [place] [address] PayID: [id number] Policy Number: [id number] [facility] Aries Ha Sr PayID: [id number] [address] [place] [address] Effective: 2012 Policy Number: [id number] Medicare Maddie Ha Expires: 2018 Group Name: Medicare [address] PayID: [id number] [place] [address] Advance Directives Type Date Description Status Comment Other Directive 07/19/2008 Health Care Proxy Current and Verified Problems Active Problems Provider Date Localized, 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 [facility] Onset: 01/20/2015 Note: Reclast since 2014 Hyperlipidemia Carina Ramirez [facility] Onset: 01/20/2015 [facility]: 01/20/2015 Note: following tx for hyperthyroidism @ ~49 Anxiety Carina Ramirez [facility] Onset: 01/20/2015 Expressive language disorder Carina Ramirez [facility] Onset: 01/20/2015 Note: stuttering Deformity of toe Carina Ramirez [facility] Onset: 01/20/2015 Note: multiple toe involvement Degenerative joint disease involving Carina Ramirez [facility] Onset: 2014 multiple joints Anxiety state Carina Ramirez [facility] Onset: 09/15/2011 Mixed hyperlipidemia Onset: 09/02/2016 Constipation - functional Harshal Moreno MD Onset: 12/02/2016 Corns [facility] callosities [facility] Onset: 11/29/2017 Amnesia Carina Ramirez [facility] Onset: 11/29/2017 Note: silent 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 Sharon Tijerina MD Onset: 06/01/2018 Patent foramen ovale [facility] Onset: 07/29/2018 Note: Eliquis 07/2018 Inactive Problems Full thickness rotator cuff tear Onset: 09/18/2003 Inactive: 09/24/2015 Resolved Problems [facility]umen [facility] Onset: 11/29/2017 Resolved: 01/06/2018 Family History Date [...] Diet Healthy, Well Balanced 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 [id number] Tablets Zafirlukast take one tablet 60tabs Clune, 04/02/2014 20mg by mouth twice a MIGNON Mcarthur Tablets day Multi 1 po qd 100tabs Socorro Darby, 08/31/2012 Vitamin/Minerals Full Spectrum Tablets Celecoxib take one capsule 90caps Kang Moss MD 200mg by mouth every Capsules day with food as needed pain Levothyroxine Sodium Take 1 Tablet By Unknown Mouth On M, 75mcg Tablets T,W,TH,F Levothyroxine Sodium Take One Tablet Unknown By Mouth Every 50mcg Tablets Wednesday & Wednesday Paroxetine HCL take one tablet 90tabs Maria Luz Oliver, 20mg by mouth every MS, CONTINUOUS IMPROVEMENT COORDINATOR-C, CNM Tablets day History Medications Hydrocodone-Acetaminophen 1 by mouth 30tabs Sharon Tijerina, 05/18/2018 - 5-325mg every 4 hours 06/01/2018 Tablets as needed for pain Metaxalone 1-2 tabs by 30taSharon Anderson, 05/10/2018 - 400mg Tablets mouth three MD [...] 150mg Tablets Omeprazole take one 30caps Z79. Pompo Jane, 08/19/2016 - 20mg Capsules DR capsule by 1 M.D. Unknown mouth every morning Augmentin take one 14tabs J01. VandanapoWandaca, 08/19/2016 - 875-125mg Tablets tablet by 90 [...] cough Senna-Docusate Sodium take one 30tabs K59. Vadnanapo Jane, 08/19/2016 - 8.6-50mg Tablets tablet by [...] 5mg Tablets every day as 0 Fabian uQintanilla 10/24/2015 needed congestion Synthroid 1 by mouth 5 Jama Anthony, 02/13/2015 - 75mcg Tablets days per week DO 10/17/2015 [t,w,th,s,s] Lipitor tab po qd 30tabs Misael Mcadams 02/26/2010 - 20mg Tablets Fabian Love, [facility] 02/26/2010 Lipitor 1 po qd 90tabs Misael Mcadams 02/26/2010 - 40mg Tablets Fabian Love, [facility] 10/12/2013 Valtrex 1 tab po bid Misael Mcadams 11/13/2008 - 500mg Tablets Fabian Love, [facility] 10/12/2013 Synthroid 1 tab po q day 30tabs Misael Mcadams 11/13/2008 - 88mcg Tablets Fabian Love, [facility] 02/20/2015 Celebrex 1 cap by mouth 90caps Jama Anthony, 11/13/2008 - 200mg Capsules every day with DO 08/19/2016 food Paroxetine HCL ER 1 tab po qd Misael Mcadams 11/13/2008 - 25mg Tablets ER 24HR Fabian Love, [facility] 10/17/2014 Forteo injection Unknown - 600mcg/2.4ML Solution [...] acetate Lesa Plunkett, 10/17/2014 (Depomedrol) 80mg injection [facility] Injection Immunizations CPT Code Status Date Vaccine Reaction Lot # [id number] Given 07/02/2017 [facility] [id number] Given 10/24/2015 Pneumococcal Conjugate [id number] Vaccine 13 Valent For Intramuscular Use 43667 Given 08/01/2013 Pneumovax Injection 37177 Given 08/01/2013 flu vaccination 37167 Given 05/16/2013 Tdap injection 38258 Given 07/06/2012 flu vaccination 78771 Given 06/29/2011 flu vaccination 50680 Given 09/17/2010 flu vaccination 82457 Given 07/26/2009 flu vaccination 62789 Given 08/28/2008 flu vaccination 64015 Given 08/15/2007 flu vaccination 80095 Given 08/11/2006 flu vaccination 08010 Given 09/10/2005 flu vaccination 49873 Given 08/06/2005 Pneumovax Injection 38574 Given 08/07/2003 flu vaccination Vital Signs Date Vital Result Comment 02/28/2019 2:13pm BP Systolic 118 mmHg BP Diastolic 60 mmHg Heart Rate 62 /min Respiratory Rate 15 /min Height 56 inches 4'8" Weight 104.00 lb BMI (Body Mass Index) 23.3 kg/m2 BSA (Body Surface Area) 1.34 m2 [place] body weight in kilograms 45 kg O2 % BldC Oximetry 98 % 12/01/2018 8:56am BP Systolic Sitting Left Arm 118 mmHg BP Diastolic Sitting Left Arm 72 mmHg Heart Rate 72 /min Respiratory Rate 18 /min Height 56 inches 4'8" Weight 103.00 lb BMI (Body Mass Index) 23.1 kg/m2 BSA (Body Surface Area) 1.34 m2 [place] body weight in kilograms 45 kg Pain Level 5 upper back/shoulders 11/03/2018 1:17pm BP Systolic Sitting Left Arm 110 mmHg BP Diastolic Sitting Left Arm 62 mmHg Heart Rate 62 /min Respiratory Rate 16 /min Height 56 inches 4'8" Weight 103.50 lb BMI (Body Mass Index) 23.2 kg/m2 BSA (Body Surface Area) 1.34 m2 [place] body weight in kilograms 45 kg O2 % BldC Oximetry 98 % 09/13/2018 10:30am BP Systolic Sitting Right Arm 120 mmHg BP Diastolic Sitting Right Arm 70 mmHg Body Temperature 98.5 F Heart Rate 60 /min reg Respiratory Rate 24 /min Height 56 inches 4'8" Weight 102.00 lb BMI (Body Mass Index) 22.9 kg/m2 BSA (Body Surface Area) 1.33 m2 [place] body weight in kilograms 45 kg O2 % BldC Oximetry 98 % ra 09/01/2018 10:19am BP Systolic 120 mmHg BP Diastolic 72 mmHg Body Temperature 98.1 F Heart Rate 62 /min Height 56 inches 4'8" Weight 103.00 lb BMI (Body Mass Index) 23.1 kg/m2 BSA (Body Surface Area) 1.34 m2 [place] body weight in kilograms 45 kg O2 % BldC Oximetry 94 % Pain Level 0 09/01/2018 10:16am Height 56 inches 4'8" [place] body weight in kilograms 45 kg 07/18/2018 1:12pm BP Systolic 127 mmHg BP Diastolic 81 mmHg Body Temperature 98.4 F Heart Rate 66 /min Respiratory Rate 18 /min Height 56 inches 4'8" Weight 103.38 lb BMI (Body Mass Index) 23.2 kg/m2 BSA (Body Surface Area) 1.34 m2 [place] body weight in kilograms 45 kg O2 % BldC Oximetry 99 % 06/01/2018 10:53am BP Systolic 141 mmHg BP Diastolic 83 mmHg Body Temperature 97.9 F Heart Rate 56 /min Respiratory Rate 15 /min Height 56 inches 4'8" Weight 101.00 lb BMI (Body Mass Index) 22.6 kg/m2 BSA (Body Surface Area) 1.33 m2 [place] body weight in kilograms 45 kg O2 % BldC Oximetry 97 % room air Pain Level 3 05/18/2018 1:27pm BP Systolic 120 mmHg BP Diastolic 62 mmHg Body Temperature 97.1 F Heart Rate 62 /min Height 55.75 inches 4'7.75" measured Weight 103.00 lb BMI (Body Mass Index) 23.3 kg/m2 BSA (Body Surface Area) 1.33 m2 [place] body weight in kilograms 45 kg O2 % BldC Oximetry 97 % Pain Level 5 05/10/2018 10:03am BP Systolic Sitting Left Arm 131 mmHg BP Diastolic Sitting Left Arm 76 mmHg Body Temperature 97.4 F Heart Rate 65 /min Respiratory Rate 17 /min Height 55.75 inches 4'7.75" measured Weight 103.00 lb BMI (Body Mass Index) 23.3 kg/m2 BSA (Body Surface Area) 1.33 m2 [place] body weight in kilograms 45 kg O2 % BldC Oximetry 99 % 11/29/2017 8:50am BP Systolic Sitting Right Arm 130 mmHg BP Diastolic Sitting Right Arm 74 mmHg Heart Rate 62 /min Respiratory Rate 12 /min Height 55.75 inches measured Weight 101.00 lb BMI (Body Mass Index) 22.8 kg/m2 BSA (Body Surface Area) 1.32 m2 [place] body weight in kilograms 45 kg 10/14/2017 1:09pm BP Systolic Sitting Left Arm 113 mmHg BP Diastolic Sitting Left Arm 78 mmHg Heart Rate 56 /min Height 56 inches 4'8" Weight 103.00 lb BMI (Body Mass Index) 23.1 kg/m2 BSA (Body Surface Area) 1.34 m2 [place] body weight in kilograms 45 kg 06/22/2017 12:44pm BP Systolic 127 mmHg BP Diastolic 72 mmHg Body Temperature 97.7 F Heart Rate 67 /min Respiratory Rate 14 /min Height 56 inches 4'8" Weight 101.00 lb BMI (Body Mass Index) 22.6 kg/m2 BSA (Body Surface Area) 1.33 m2 [place] body weight in kilograms 45 kg O2 % BldC Oximetry 96 % 04/14/2017 9:36am BP Systolic Sitting Right Arm 104 mmHg BP Diastolic Sitting Right Arm 62 mmHg Body Temperature 99.0 F Heart Rate 68 /min Respiratory Rate 18 /min Height 56 inches 4'8" Weight 101.00 lb BMI (Body Mass Index) 22.6 kg/m2 BSA (Body Surface Area) 1.33 m2 [place] body weight in kilograms 45 kg O2 [...] kg/m2 BSA (Body Surface Area) 1.33 m2 [place] body weight in kilograms 45 kg 09/10/2016 [...] Date Facility Test Result H/L Range Note Urine Dipstick 12/01/2018 [facility] Ua Leuko - Negative Ua Nitrite - Negative Ua Urobilinogen .2 0.2 - 1.0 E.U./dL Ua Protein - Negative Ua PH 7.5 6.5-7.5 Ua Blood - Negative Ua Specific [place] 1.005 Low 1.010-1.030 Ua Ketones - Negative Ua Bilirubin - Negative Ua Glucose - Negative LDL Cholesterol 12/01/2018 [facility] Cholesterol 210 mg/dL High <200 1, 2 Profile [address] [place], [place] [id number] [phone] Triglycerides 95 mg/dL <150 3 HDL Cholesterol 82 mg/dL >40 4 LDL-Cholesterol 109 mg/dL < 100 5 Comprehensive Metabolic 12/01/2018 [facility] Glucose 91 mg/dL N 74-106 Panel [address] [place] [address] [phone] BUN 18 mg/dL N 7-18 Creatinine 0.9 [...] 12-78 Alkaline Phosphatase 49 U/L N 45-117 LDL Cholesterol 01/04/2018 [facility] Cholesterol 197 mg/dL <200 7, [address] [place] [address] [phone] Triglycerides 95 mg/dL <150 9 HDL Cholesterol 84 mg/dL >40 10 LDL-Cholesterol 94 mg/dL < 100 11 Laboratory test 12/20/2017 [facility] Thyroid Stim 0.52 uIU/mL N 0.30-4.20 [address] [place] [address] [phone] Treponema Antibody [place] Negative Negative 13 Vitamin B1 (Thiamine),WB 156.3 nmol/L 66.5-200.0 14 Laboratory 12/01/2017 [facility] Vitamin 45.7 30.0-100.0 15, 16 test finding [address] D,25-Hydroxy ng/[place] [address] [phone] Vitamin B12 12/01/2017 [facility] Vitamin B12 948 N [phone] pg/mL [place] [id number] [phone] Folic Acid > 20.0 ng/mL High 3.1-17.5 Comprehensive Metabolic 12/01/2017 [facility] Glucose 90 mg/dL N 74-[address] [place] [address] [phone] BUN 23 mg/dL High 7-18 Creatinine 0.8 [...] 12-78 Alkaline Phosphatase 51 U/L N 45-117 CBS W/Automated Diff 12/01/2017 [facility] White Blood 5.5 K/uL N 3.1-10.[address] [place] [address] [phone] Red Blood Count 4.31 M/uL N 3.90-5.40 [...] 40.4-72.8 Lymph % 31.0 % N 20.0-42.0 [place] % 7.9 % N 4.3-13.2 Eo% 2.2 % N 0.0-6.6 Bas% 0.7 % N 0.0-1.1 Neut# 3.18 K/uL N 1.8-7.0 Lymph # 1.69 K/uL N 1.0-4.0 [place] # 0.43 K/uL N 0.3-0.9 Eos # 0.12 K/uL N 0.0-0.5 Baso # 0.04 K/uL N 0.0-0.1 Laboratory test 08/19/2016 [facility] Thyroid Stim 3.87 N 0.30-4.20 [address] Hormone uIU/[place] [address] [phone] Laboratory test 11/26/2015 [facility] TSH Reflex 5.80 High 0.36-3.74 [address] FT4 and/or uIU/[place] [address] FT3 [phone] Free T3 2.05 pg/mL Low 2.18-3.98 Free T4 1.00 ng/dL 0.76-1.46 Comprehensive Metabolic 10/24/2015 [facility] Glucose 92 mg/dL 74-[address] [place] [address] [phone] BUN 21 mg/dL High 7-18 Creatinine 0.8 [...] Phosphatase 62 U/L 45-117 LDL Cholesterol 10/24/2015 [facility] Cholesterol 204 mg/dL High <200 [address] [place] [address] [phone] Triglycerides 142 mg/dL <150 22 HDL Cholesterol 75 mg/dL >40 23 LDL-Cholesterol 101 mg/dL < 100 24 Laboratory test 10/24/2015 [facility] Vitamin 43.1 30.0-100.0 [address] D,25-Hydroxy ng/[place] [address] [phone] Laboratory test 09/24/2015 [facility] Thyroid Stim 0.46 0.36-3.[address] Hormone uIU/[place] [address] [phone] Free T4 1.37 ng/dL 0.76-1.46 CBS W/Automated Diff 09/24/2015 [facility] White Blood 7.2 K/uL 3.1-10.[address] [place] [address] [phone] Red Blood Count 4.42 M/uL 3.90-5.40 Hemoglobin [...] % 40.4-72.8 Lymph % 17.8 % 17.0-46.1 [place] % 8.4 % 4.3-13.2 Eo% 1.3 % 0.0-6.6 Bas% 0.6 % 0.0-1.1 Neut# 5.15 K/uL 1.0-7.0 Lymph # 1.27 K/uL Low 1.8-7.0 [place] # 0.60 K/uL 0.3-0.9 Eos # 0.09 K/uL 0.0-0.5 Baso # 0.04 K/uL 0.0-0.1 Hepatitis C 02/20/2015 [facility] Hepatitis C Nonreactive Antibody [address] [place] [place] [address] [phone] Signal/Cutoff ratio < 0.02 <0.80 26 Laboratory [...] mg/dL 0.4-1.5 Total Protein 6.5 g/dL 6.2-8.1 Vitamin D, 25 01/06/2013 N2N/[facility]D Import 25-Hydroxy Vitamin D 35 ng/mL 30 Hydroxy Total 25-Hydroxy Vitamin D2 <4.0 ng/mL 25-Hydroxy Vitamin D3 35 ng/mL Liver Function Panel 01/06/2013 N2N/[facility]D Import Albumin 4.0 g/dL 3.2-5.2 Albumin/Globulin Ratio 1.5 1-3 Alkaline Phosphatase 79 U/L 30-110 Alt 20 U/L 14-54 Ast 29 U/L 12-42 Direct Bilirubin 0.1 mg/dL 0.1-0.5 Globulin 2.7 g/dL 2-4 Indirect Bilirubin 0.7 mg/dL 0.3-1.0 Total Bilirubin 0.8 mg/dL 0.4-1.5 Total Protein 6.7 g/dL 6.2-8.1 Lipid Profile 01/06/2013 [facility] Import Cholesterol 159 mg/dL Less than (Trig/Chol/HDL) 200 Cholesterol/HDL Ratio 2.1 Average 1-4.44 HDL Cholesterol 75 mg/dL High 40-60 31 LDL Cholesterol 72.8 mg/dL Less Than 100 32 Triglycerides 56 mg/dL 40-200 Laboratory test finding 01/06/2013 [facility] Import Creatine Kinase 163 U/L 0-200 Free T4 1.20 ng/mL 0.61-1.24 TSH (Thyroid Stimulating Horm) 1.73 miu/mL 0.34-5.60 Laboratory test finding 10/06/2012 [facility] Import Free T4 1.04 ng/mL 0.61-1.24 TSH (Thyroid Stimulating Horm) 1.81 miu/mL 0.34-5.60 Vitamin D, 25 10/06/2012 [facility] Import 25-Hydroxy Vitamin D 36 ng/mL 33 Hydroxy Total 25-Hydroxy Vitamin D2 <4.0 ng/mL 25-Hydroxy Vitamin D3 36 ng/mL Laboratory test finding 09/01/2012 [facility] Import Bas% 0.5 % 0.0-1.1 Baso # [...] 30.8-34.3 Mean Platelet Volume 11.4 fL 8.9-12.4 [place] # 0.44 K/uL 0.3-0.9 [place] % 7.2 % 4.3-13.2 Neut# 3.60 K/uL [...] Blood Count 6.1 K/uL 3.1-10.7 Laboratory test 10/05/2011 [employer] Import CPK (Creatine 104 U/L 0-170 finding Kinase) TSH 0.26 MIU/ML Low 0.34-5.60 CBC Auto Diff 10/05/2011 [facility] Import Abs Basophils 0.1 0-0.2 Abs Eosinophils [...] 10.5-15 White Blood Count 6.9 CUMM 4.8-10.8 Lipid Profile 10/05/2011 [facility] Import Cholesterol 148 mg/dL Less Than 37 (Trig/Chol/HDL) 200 Cholesterol/HDL Ratio 2.08 AVERAGE 1-4.44 High Density Lipoprotein 71 mg/dL High 40-60 38 Low Density Lipoprotein 64 mg/dL Less Than 100 39 Triglyceride 65 mg/dL 40-200 Liver Function Panel 10/05/2011 N2N/[facility] Import Albumin 4.3 GM/DL 3.2- 5.2 Albumin/Globulin Ratio 2.2 1-3 Alkaline Phosphatase 65 U/L 30-110 Alt (SGPT) 17 U/L 14-54 Ast (Sgot) 26 U/L 12-42 Bilirubin Direct 0.1 mg/dL 0.1-0.5 Bilirubin Total 0.8 mg/dL 0.4-1.5 40 Globulin 2.0 GM/DL 2-4 Indirect Bilirubin 0.7 mg/dL 0.3-1.0 41 Total Protein 6.3 GM/DL 6.2-8.1 Laboratory test 10/05/2011 N2N/[facility] Import Cytology Pap See Note 42 finding Throat-Beta Strept 07/06/2011 N2N/[facility]D Import Throat-Beta Posad 43 Strep Culture Laboratory test 06/07/2009 [facility] Vitamin 32.7 ng/mL 32.0-100 44 finding [address] [facility] D,25-Hydroxy .0 [place] [address] [phone] Liver Function 06/07/2009 [facility] Total Protein 7.0 g/dL 6.3-8.0 Tests [address] [place] [address] [phone] Albumin 4.1 g/dL 3.5-5.0 Bilirubin,Total 0.5 mg/dL 0.2-1.2 Bilirubin,Direct 0.1 mg/dL 0.1-0.4 Bilirubin,Indirect 0.4 mg/dL 0.0-0.9 Sgot/Ast 34 U/L 16-40 SGPT/Alt 39 U/L 30-65 Alkaline Phosphatase 83 U/L 50-136 Globulin 2.9 gm/dL 1.9-4.3 Alb/Glob 1.4 LDL Cholesterol 06/07/2009 [facility] Cholesterol 132 mg/dL 120-200 Profile [address] [place] [address] [phone] Triglycerides 85 mg/dL 0-210 HDL Cholesterol 58 mg/dL 32-96 LDL-Cholesterol 57 mg/dL Low 62-185 Laboratory test finding 06/07/2009 [facility] CK 98 U/L 26-190 [address] [facility] [place] [address] [phone] Laboratory test finding 12/29/2007 N2N/[facility]D Import Albumin 3.8 g/dL 3.5- 5.0 Alkaline Phosphatase 73 U/L 50-136 Bilirubin,Direct 0.2 [...] LOSS R41.3 R42 E51.9 13 Performed at: [address] [id number] Molding Sander: Ankit Figueredo MD, Phone: [phone] 14 This test was developed and its performance characteristics determined by [employer]. It has not been cleared or approved by the Food and Drug Administration. Performed at: [address] [id number] Molding Sander: Ankit Figueredo MD, Phone: [phone] 15 R41.3 16 Vitamin D deficiency has been defined by the [place] of Medicine and an Endocrine Society practice guideline as a level of serum 25-OH vitamin D less than 20 ng/mL (1,2). The Endocrine Society went on to further define vitamin D insufficiency as a level between 21 and 29 ng/mL (2). 1. IOM ([place] of Medicine). 2010. Dietary reference intakes for calcium and D. [place]: The National Academies Press. 2. Jethro MF, Juan Francisco NC, Abida MAC, et al. Evaluation, treatment, and prevention of vitamin D deficiency: an Endocrine Society clinical practice guideline. JCEM. 2010; 96(7):1911-30. Performed at: [facility] [address] [id number] Molding Sander: Carly Garcia MD, Phone: [phone] 17 Note: Persistent reduction for 3 months [...] D deficiency has been defined by the [place] of Medicine and an Endocrine Society practice guideline as a level of serum 25-OH vitamin D less than 20 ng/mL (1,2). The Endocrine Society went on to further define vitamin D insufficiency as a level between 21 and 29 ng/mL (2). 1. IOM (Douglas of Medicine). 2010. Dietary reference intakes for calcium and D. [place]: The National Academies Press. 2. Jethro NERI, Juan Francisco MCINTOSH, Abida MAC, et al. Evaluation, treatment, and prevention of vitamin D deficiency: an Endocrine Society clinical practice guideline. JCEM. 2010; 96(7):1911-30. Performed at: RN - [facility] [address] [id number] Molding Sander: Carly Garcia MD, Phone: [phone] 26 Antibodies to HCV not detected; does not exclude early acute HCV infection. 27 Cytology Laboratory [address] [place] [address], [address] [place] [address] CYTOLOGY REPORT Name: Maddie Ha : 1945 (Age: 68) Sex: F Location: [facility] Med. Rec. # [id number] Date Collected: 10/22/2014 Billing #: [id number] Date Received: 10/22/2014 Requisition # [id number] Physician(s): CARINA PISANO Source of Specimen: ENDOCERVICAL/ECTOCERVICAL THIN PREP Clinical Information: Date of Last Menstrual Period: None Provided Menstrual History: Post menopausal: 1992 Interpretation: NEGATIVE FOR INTRAEPITHELIAL LESION OR MALIGNANCY. Specimen Adequacy: SATISFACTORY FOR EVALUATION. Additional Findings: ENDOCERVICAL/TRANSFORMATION ZONE PRESENT. br Electronic Signature EMMA Hardin (ASCP) Reported: 10/24/2014 [facility] ICD-9 Code(s) V76.2 28 HDL Interpretation: Undesirable: High Risk: Less than 40 mg/dL Desirable: Low Risk: Greater than 60 mg/dL 29 LDL Interpretation: Low Risk Optimal Level: LDL Less than 100 mg/dL Near or Above Optimal: LDL 100-129 mg/dL Borderline High Risk: LDL 130-159 mg/dL High Risk : LDL 160-189 mg/dL Very High Risk: LDL Greater than 189 mg/dL 30 -- REFERENCE VALUE -- 25-HYDROXY D TOTAL (D2+D3) Optimum levels in the normal population are 25-80 Test Performed by: [address] [id number] Global Sales Executive: Blas Araiza III, M.D. 31 HDL Interpretation: Undesirable: High Risk: Less than 40 MG/DL Desirable: Low Risk: Greater than 60 MG/DL 32 LDL Interpretation: Low Risk Optimal Level: LDL Less than 100 MG/DL Near or Above Optimal: LDL 100-129 MG/DL Borderline High Risk: LDL 130-159 MG/DL High Risk : LDL 160-189 MG/DL Very High Risk: LDL Greater than 189 MG/DL 33 -- REFERENCE VALUE -- 25-HYDROXY D TOTAL (D2+D3) Optimum levels in the normal population are 25-80 Test Performed by: [address] [id number] Global Sales Executive: Blas Araiza III, M.D. 34 Performed at: - [facility] [address] [id number] Molding Sander: Carly Garcia MD, Phone: [phone] 35 A low TSH should not be the sole basis for diagnosing primary hyperthyroidism, or primary hypopituitary function. Additional tests are suggested for confirmation. 36 Performed at: - [facility] [id number] Molding Sander: Ankit Figueredo MD, Phone: [phone] 37 CHOLESTEROL INTERPRETATION: Desirable: Less than 200 MG/DL Borderline-High Risk: 200-239 MG/DL High-Risk: 240 MG/DL and over 38 HDL INTERPRETATION: Undesirable: High Risk: Less than 40 MG/DL Desirable: Low Risk: Greater than 60 MG/DL 39 LDL INTERPRETATION: Low Risk Optimal Level: LDL Less than 100 MG/DL Near or Above Optimal: LDL 100-129 MG/DL Borderline High Risk: LDL 130-159 MG/DL High Risk : LDL 160-189 MG/DL Very High Risk: LDL Greater than 189 MG/DL 40 A metabolite of Naproxen, O-desmethylnaproxen, has been shown to interfere with the Jendrassik-Elderton method for measuring total bilirubin. Samples from patients who have taken Naproxen have shown spurious elevation in total bilirubin levels. 41 Please note updated reference range, effective 04/17/10 42 Cytology Laboratory [address] [place] [address], [address] [place] [address] CYTOLOGY REPORT Name: Maddie Ha : 1945 (Age: 65) Sex: F Location: [facility] Soc. Sec. #: [id number] Date Collected: 10/05/2011 Billing #: [id number] Date Received: 10/06/2011 Physician(s): CARINA PISANO Source of Specimen: ENDOCERVICAL/ECTOCERVICAL THIN PREP Clinical Information: Date of Last Menstrual Period: None Provided Menstrual History: Post menopausal Specimen Adequacy: SATISFACTORY FOR EVALUATION. ADEQUATE ENDOCERVICAL/TRANSFORMATION ZONE. SCANT CELLULARITY. General Categorization: NEGATIVE FOR INTRAEPITHELIAL LESION OR MALIGNANCY. kfs Electronic Signature EMMA Richards (ASCP) Reported: 10/08/2011 Also seen by:EMMA Richards (ASCP) Cytology [facility] ICD -9 Code(s) V72.31 43 POSITIVE FOR PRESUMPTIVE GROUP A BETA HEMOLYTIC STREP BY BACITRACIN DISC 44 Recent studies consider the lower limit of 32.0 ng/mL to be a threshold for optimal health. Crow BW. J Nutr. 2005 Oct;135(2):317-22. Procedures Date Code Description Status 12/15/2018 08802731 Mammogram Completed 07/27/2018 90025 Doppler ECHO Color Flow Mapping Completed 07/27/2018 16400 Doppler Echocardiogram Complete Completed 07/27/2018 78356 Transesophageal Echocardiogram Completed 05/10/2018 71362 Radiology, Shoulder: Two Views (Sso) Completed 01/12/2018 55751 Echocardiogram Complete Completed 12/23/2017 [id number] Bone Mineral Density Test Completed 12/09/2017 [id number] Mammogram Completed 10/14/2017 09478 Radiology, Shoulder: Two Views (Sso) Completed 10/14/2017 17362 Radiology, Shoulder: Two Views (Sso) Completed 11/09/2016 [id number] Mammogram Completed 10/15/2016 69066 Radiology, Shoulder: Two Views (Sso) Completed 10/15/2016 31368 Radiology, Shoulder: Two Views (Sso) Completed 09/17/2016 [id number] Colonoscopy Completed 09/10/2016 64632 EKG-Tracing And Report Completed 10/29/2015 [id number] Mammogram Completed 10/17/2015 31980 Radiology, Shoulder: Two Views (Sso) Completed 10/17/2015 81990 Radiology, Shoulder: Two Views (Sso) Completed 10/17/2015 90457 Radiology, Shoulder: Two Views (Sso) Completed 10/17/2015 22913 Radiology, Shoulder: Two Views (Sso) Completed 10/25/2014 67805 Mammography Unilateral Completed 10/17/2014 04334 Radiology, Shoulder: Two Views (Sso) Completed 10/17/2014 55617 Radiology, Shoulder: Two Views (Sso) Completed 10/17/2014 27353 Radiology, Shoulder: Two Views (Sso) Completed 10/17/2014 80765 Radiology, Shoulder: Two Views (Sso) Completed 10/17/2014 34286 Asp./Injection major joint Completed 10/10/2013 77563 Radiology, Shoulder: One View Completed 10/27/2012 38869 Arthroplasty Shoulder Total Completed 10/06/2012 93707 EKG-Tracing And Report Completed 09/06/201283382 Asp./Injection major joint Completed 01/27/2012 49113 Pulse Oximetry Completed 03/25/2011 26111 Echocardiogram Complete Completed 09/24/2010 25219 Echocardiogram Complete Completed 11/26/2009 82535 Remove Impacted Cerumen Completed 04/15/2009 12956 Remove Impacted Cerumen Completed 01/04/2009 08152 Colonoscopy Completed 01/04/2009 08347513 Colonoscopy Completed 10/26/2008 42041 EKG-Tracing And Report Completed 10/02/2008 62969 Stress Test Interpre And Report Only Completed 11/17/200761983 Asp./Injection major joint Completed 04/07/200794702 Asp./Injection major joint Completed 09/10/200400296 Asp./Injection major joint Completed 08/05/2004 80511 EKG-Tracing And Report Completed 12/21/2002 37643 Remove Impacted Cerumen Completed 06/10/1997 20175 EKG Interpretation And Report Only Completed Encounters Type Date Location Provider Dx Diagnosis Office Visit 12/01/2018 Family Medicine [place], Z00.00 Encntr for general 9:00a [place], 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 L60.8 Other nail disorders E03.9 [...] shoulder joint Office Visit 05/10/2018 9:45a [facility] Z96.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., right artificial RPAC shoulder joint M25.511 Pain in right shoulder Office Visit 11/29/2017 9:00a Primary Care Ashlye Z00.01 Encounter for Office Car[place], RPAC general [...] Primary Care Ashley J02.9 Acute pharyngitis, Office [place], RPAC unspecified Office Visit 12/02/2016 11:00a BAKARI Moreno MD K59.09 Other constipation Office Visit 11/03/2016 1:00p Primary Care [place], E03.9 Hypothyroidism, Office Carina, [facility] unspecified M81.0 Age-related osteoporosis w/o current pathological fracture K59.09 Other constipation Office Visit 10/15/2016 [facility] Z96.611 Presence of right 1:15p Office Lesa S., artificial RPAC shoulder joint Office Visit 09/10/2016 Cardiology Office Arely Franco R07.9 Chest pain, 9:00a A., ANP unspecified Office Visit 09/02/2016 BAKARI Moreno MD R07.9 Chest pain, 10:00a unspecified K59.09 Other constipation R19.4 Change in bowel habit Office Visit 08/19/2016 1:45p Primary Care Jane Vaughan J01.90 Acute sinusitis, Office M.D. 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 (Nsaid) M54.5 Low back pain K59.00 Constipation, unspecified J30.89 Other allergic rhinitis Office Visit 04/02/2016 2:15p Primary Care Ashley J01.90 Acute sinusitis, Office Carina, [facility] unspecified J30.9 Allergic rhinitis, unspecified Office Visit 01/16/2016 1:00p Primary Care [place], E03.9 Hypothyroidism, Office Carina, [facility] unspecified K59.00 Constipation, unspecified L82.1 Other seborrheic keratosis J30.9 Allergic rhinitis, unspecified Office Visit 10/24/2015 9:00a Primary Care Ashley, Z00.00 Encntr for Office [facility] general adult medical exam w/o abnormal findings Z12.31 Encntr screen mammogram for malignant neoplasm of breast M81.0 Age-related osteoporosis w/o current pathological fracture E03.9 Hypothyroidism, unspecified K59.00 Constipation, unspecified Z23 Encounter for immunization Office Visit 10/17/2015 9:15a [facility] Z96.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., right artificial RPAC shoulder joint M25.512 Pain in left shoulder Office Visit 10/14/2015 9:30a Primary Care Ashley, E03.9 Hypothyroidism, Office Carina, [facility] unspecified K59.00 Constipation, unspecified Office Visit 09/24/2015 9:30a Primary Care Ashley, E03.9 [facility] J01.90 Acute sinusitis, unspecified Office Visit 02/20/2015 10:00a [facility] Ashley, 477.0 Rhinitis [facility] Allergic Due To Pollen 780.8 Generalized Hyperhidrosis Office Visit 10/17/2014 9:15a [facility], V43.61 Shoulder Office Lesa S., Replacement By [facility] Other Means 726.10 Bursae & Tendon Disorders Shoulder Region Unspec 719.41 Pain Joint Shoulder Region 715.11 Osteoarthrosis Localized Prim Shoulder Region Office Visit 10/10/2013 1:15p [facility]opa[facility], V43.61 Shoulder Office Lesa S., Replacement By [facility] Other Means 715.11 Osteoarthrosis Localized Prim Shoulder Region Office Visit 07/04/2009 Surgical Office Paramjit, V76.51 Special 1:00p Brian Gonzales Screening For M.D. Malignant Neoplasms Colon Office Visit 11/12/2008 Cardiology Misael Mcadams 786.51 Pain Precordial 1:30p Office Fabian Love, FACC 272.0 Hypercholesterolemia Pure Office Visit 10/26/2008 1:00p Cardiology Office Misael Mcadams 786.50 Pain Chest M., M.Hermann, FACC Unspec 794.30 Cardiovascular Function Study Unspec Abnormal 272.4 Hyperlipidemia Other Unspec Office Visit 02/11/2007 10:15a Operating Room Ceasar Myers, 473.0 Sinusitis Chronic M.D. Maxillary Plan of Treatment Future Appointment(s):06/08/2019 10:00 am - Lyubov Oliveros FNP at [facility]
--- NOTE | 2019-03-13 12:22 | UC ---
Throat Pain/Nasal Levi HPI - HPI Summary HPI Summary: 73 year old female with h/o PFO, on elliquis, presents with 2 1/2 week h/o nasal congestion, cough, intermittent dizziness, ear pressure b/l, frontal sinus pressure. No fever, chills. Seen by PCP ~ 2 weeks ago, given Sudafed, no benefit. - History of Current Complaint Stated Complaint: COUGH,NASAL CONGESTION,BALANCE OFF Time Seen by Provider: 03/13/19 12:07 Hx Obtained From: Patient ?: No Onset/Duration: Sudden Onset Severity: Mild Pain Scale Used: 0-10 Numeric Cough: Nonproductive Associated Signs & Symptoms: Positive: Dysphagia, Hoarseness, Sinus Discomfort, Nasal Discharge. Negative: Fever, Vomiting - Allergies/Home Medications Allergies/Adverse Reactions: Allergies Allergy/AdvReac Type Severity Reaction Status Date / Time alendronate sodium AdvReac See Comment Verified 03/13/19 12:32 [From Fosamax] Home Medications: Home Medications Apixaban* [Eliquis*] 2.5 mg PO BID 03/13/19 [History Confirmed 03/13/19] Denosumab(NF) [Prolia(NF)] 60 mg IM Q6M 03/13/19 [History Confirmed 03/13/19] Levothyroxine TAB* [Synthroid TAB*] 50 mcg PO SUSA 03/13/19 [History Confirmed 03/13/19] Levothyroxine TAB* [Synthroid TAB*] 75 mcg PO MOTUWETHFR 03/13/19 [History Confirmed 03/13/19] Linaclotide (NF) [Linzess (NF)] 145 mcg PO DAILY PRN 03/13/19 [History Confirmed 03/13/19] PARoxetine HCL TAB* [Paxil TAB*] 20 mg PO DAILY 03/13/19 [History Confirmed ] PMH/Surg Hx/FS Hx/Imm Hx Previously Healthy: Yes Endocrine History: Thyroid Disease Cardiovascular History: Other - PFO - Surgical History Surgical History: Yes Surgery Procedure, Year, and Place: FEET, SHOULDER, TUBAL - Social History Alcohol Use: Daily Alcohol Amount: a few a day Substance Use Type: None Smoking Status (MU): Former Smoker Type: Cigarettes Length of Time of Smoking/Using Tobacco: quit 17 yo Review of Systems All Other Systems Reviewed And Are Negative: Yes Constitutional: Positive: Negative ENT: Positive: Ear Ache, Nasal Discharge, Sinus Congestion, Sinus Pain/ Tenderness Respiratory: Positive: Cough. Negative: Shortness Of Breath Is Patient Immunocompromised?: No Physical Exam Triage Information Reviewed: Yes Appearance: Well-Appearing, No Pain Distress, Well-Nourished Vital Signs Reviewed: Yes Eyes: Positive: Conjunctiva Clear ENT: Positive: Pharynx normal, TMs normal - + fluid behind TM right, Sinus tenderness - frontal mild, Uvula midline. Negative: Pharyngeal erythema, Nasal congestion, Nasal drainage, TM bulging, TM dull, TM red, Tonsillar swelling, Tonsillar exudate, Trismus, Muffled voice Neck: Positive: Supple, Nontender, No Lymphadenopathy. Negative: Nuchal Rigidity, Enlarged Nodes @ Respiratory: Positive: Chest non-tender, Lungs clear, Normal breath sounds, No respiratory distress, No accessory muscle use. Negative: Respiratory distress, Crackles, Rhonchi, Stridor, Wheezing Cardiovascular: Positive: RRR, No Murmur Skin Exam: Normal Throat Pain/Nasal Course/Dx - Course Course Of Treatment: SInusitis- due to prolonged symptoms (>2 weeks), trial of antibiotics given - Antibiotics as directed - Follow up with primary physician within 2-3 days if no improvement - Increase fluid intake - Over the counter medications for congestion such as Claritin, benadryl at night. - humidifer at night to help with symptoms. - Differential Dx/Diagnosis Differential Diagnosis/HQI/PQRI: Laryngitis, Pharyngitis, Sinusitis, Tonsillitis , URI, Other Provider Diagnosis: Sinusitis Discharge - Sign-Out/Discharge Documenting (check all that apply): Patient Departure All imaging exams completed and their final reports reviewed: No Studies - Discharge Plan Condition: Good Disposition: HOME Prescriptions: Azithromyxin ENMA (NF) [Z-Enma (Zithromax) 250 mg tabs #6] 2 tab PO .TODAY, THEN 1 DAILY #6 tab Patient Education Materials: Sinusitis (ED) Referrals: Penny Oliveros NP [Primary Care Provider] - Additional Instructions: - Antibiotics as directed - Follow up with primary physician within 2-3 days if no improvement - Increase fluid intake - Over the counter medications for congestion such as Claritin, benadryl at night. - humidifer at night to help with symptoms. - Billing Disposition and Condition Condition: GOOD Disposition: Home
[2019-03-13 12:40] VITALS: BP 103/88
== END 2019-03-13 12:40 | disposition home or self-care (01) ==
LOC: UCCORT 11:25
DX: J32.9 Chronic sinusitis, unspecified (principal); E07.9 Disorder of thyroid, unspecified; Z87.891 Personal history of nicotine dependence
CPT/HCPCS: 99212; G0463